=== PATIENT | female | born 1990 ===

== ENCOUNTER 2021-02-16 08:05 | Outpatient (REF) | payer OTHER, SELFPAY ==
[2021-02-18 15:12] LABS: TS Negative Control Passed; TS Panel A 0; TS Panel B 0; TS Positive Control Passed; TSpotTB Negative (Negative)
== END 2021-02-16 08:06 | disposition home or self-care (01) ==
LOC: HO.HMGCLDS 08:05
PROVIDERS: PCP Internal Medicine; Visit Provider Internal Medicine
DX: Z11.1 Encounter for screening for respiratory tuberculosis (principal)
CPT/HCPCS: 36415; 86481

== ENCOUNTER 2021-05-12 09:49 | Outpatient (REF) | payer OTHER, SELFPAY ==
[2021-05-12 11:46] LABS: Estimated Average Glucose 120 mg/dL; Hemoglobin A1c % 5.8 %
[2021-05-12 11:50] LABS: Alanine Aminotransferase 41 U/L (0-31); Anion Gap 14 (12-20); Aspartate Amino Transferase 24 U/L (5-31); Blood Urea Nitrogen 9 mg/dL (9-16); Calcium 9.3 mg/dL (8.4-10.2); Carbon Dioxide 23 mmol/L (22-29); Chloride 105 mmol/L (96-108); Cholesterol 157 mg/dL; Estimated Glomerular Filt Rate > 60; Glucose Fasting 116 mg/dL (60-99); HDL Cholesterol 35 mg/dL; LDL Cholesterol Calculated 104 mg/dl; Potassium 4.2 mmol/L (3.3-5.1); Sodium 138 mmol/L (135-145); Triglycerides 92 mg/dL
[2021-05-12 12:14] LABS: Free T4 (Free Thyroxine) 0.96 ng/dL (0.71-1.85); Thyroid Stimulating Hormone 0.66 uIU/mL (0.32-4.0); Vitamin D 25-OH Total 19.9 ng/mL (>30)
[2021-05-14 21:12] LABS: Thyroid Peroxidase Antibodies <1 IU/mL (<9)
== END 2021-05-12 09:50 | disposition home or self-care (01) ==
LOC: HO.HMGCLDS 09:49
PROVIDERS: PCP Internal Medicine; Visit Provider Internal Medicine
DX: E04.2 Nontoxic multinodular goiter (principal); F41.8 Other specified anxiety disorders; I10 Essential (primary) hypertension; E03.9 Hypothyroidism, unspecified
CPT/HCPCS: 36415; 80048; 80061; 82306; 83036; 84439; 84443; 84450; 84460; 86376

== ENCOUNTER 2021-07-12 13:54 | Outpatient (REF) | payer OTHER, SELFPAY ==
--- NOTE | ~2021-07-12 | US_ITS ---
EXAMINATION: US THYROID CLINICAL INFORMATION: Nontoxic multinodular goiter. COMPARISON: Ultrasound soft tissue head/neck thyroid dated 02/25/2020 and 09/03/2017. TECHNIQUE: Linear transducer grayscale and color Doppler examination with attention to the region of the thyroid. FINDINGS: SIZE: Measurements of the thyroid lobes and nodules are given in sagittal, anteroposterior and transverse dimensions respectively. Right Thyroid Lobe: 4.6 x 1.2 x 2.0 cm, volume 5.8 mL. Previously 4.7 x 1.5 x 1.9 cm, volume 7.3 mL. Parenchyma: The gland echotexture is homogeneous. Thyroid vascularity is normal. Left Thyroid Lobe: 3.7 x 0.9 x 1.6 cm, volume 2.8 mL. Previously 5.1 x 1.1 x 1.9 cm, volume 5.4 mL. Parenchyma: The gland echotexture is homogeneous. Thyroid vascularity is normal. Isthmus: 0.4 cm in maximum AP dimension. Previously 0.4 cm. Estimated total number of nodules greater than or equal to 1 cm: 0. [employer] nodules are described as follows: 1. Location: Right superior. Size: 0.4 x 0.3 x 0.4 cm, volume 0.03 mL. Previously: 0.5 x 0.4 x 0.4 cm, volume 0.04 mL. Nodule characteristics: Composition: Mixed cystic and solid (1). Echogenicity: Hypoechoic (2). Shape: Not taller than wide (0). Margins: Smooth (0). Echogenic Foci: None (0). ACR TI-RADS total points: 3 ACR TI-RADS category: 3 Significant change in size (>/= 20% in 2 dimensions and minimal increase of 2 mm or 50% or greater increase in volume): No NODES: No lymphadenopathy is seen in the tissue surrounding the thyroid gland. US/US thyroid IMPRESSION: Stable 4 mm TR 3 nodule of the right thyroid lobe. Other previously visualized sub-5 mm thyroid nodules not clearly visualized on today's imaging. No new suspicious thyroid nodules visualized. ACR TI-RADS RECOMMENDATION REFERENCE: Ultrasound-guided fine-needle aspiration, followup ultrasound, no further follow up. * TR3 (3 points): FNA if more than or equal to 2.5 cm in maximum dimension, followup ultrasound in 1, 3 and 5 years if 1.5 to 2.4 cm in maximum dimension. * TR3, TR4 or TR5 nodules that are below the size threshold for follow up receive no follow up.
== END 2021-07-12 13:55 | disposition home or self-care (01) ==
LOC: HO.US 13:54
PROVIDERS: PCP Internal Medicine; Visit Provider Internal Medicine
DX: R13.10 Dysphagia, unspecified (principal); E04.2 Nontoxic multinodular goiter
CPT/HCPCS: 76536

== ENCOUNTER 2021-12-12 11:39 | Outpatient (REF) | payer OTHER, SELFPAY ==
[2021-12-12 14:08] LABS: Alanine Aminotransferase 13 U/L (0-31); Anion Gap 14 (12-20); Aspartate Amino Transferase 13 U/L (5-31); Blood Urea Nitrogen 10 mg/dL (9-16); Calcium 9.1 mg/dL (8.4-10.2); Carbon Dioxide 23 mmol/L (22-29); Chloride 105 mmol/L (96-108); Cholesterol 202 mg/dL; Estimated Glomerular Filt Rate > 60; Glucose Fasting 124 mg/dL (60-99); HDL Cholesterol 50 mg/dL; LDL Cholesterol Calculated 119 mg/dl; Potassium 4.4 mmol/L (3.3-5.1); Sodium 138 mmol/L (135-145); Triglycerides 167 mg/dL
[2021-12-12 14:30] LABS: Free T4 (Free Thyroxine) 0.92 ng/dL (0.71-1.85); Thyroid Stimulating Hormone 0.65 uIU/mL (0.32-4.0)
[2021-12-12 14:37] LABS: Estimated Average Glucose 117 mg/dL; Hemoglobin A1c % 5.7 %
[2021-12-14 20:05] LABS: TS Negative Control Passed; TS Panel A 0; TS Panel B 0; TS Positive Control Passed; TSpotTB Negative (Negative)
== END 2021-12-12 11:40 | disposition home or self-care (01) ==
LOC: HO.HMGCLDS 11:39
PROVIDERS: PCP Internal Medicine; Visit Provider Internal Medicine
DX: Z11.1 Encounter for screening for respiratory tuberculosis (principal); Z00.01 Encounter for general adult medical examination with abnormal findings; E28.2 Polycystic ovarian syndrome; E03.9 Hypothyroidism, unspecified; E04.2 Nontoxic multinodular goiter; E66.9 Obesity, unspecified; F41.1 Generalized anxiety disorder
CPT/HCPCS: 36415; 80048; 80061; 83036; 84439; 84443; 84450; 84460; 86481

== ENCOUNTER 2022-03-07 15:43 | Emergency (ER) | payer OTHER, SELFPAY ==
[2022-03-07 16:37] VITALS: BP 138/87; PULSE 100; RESP 16; TEMP 36.9; O2SAT 99; BMI 33.3
[2022-03-07 17:02] LABS: MANUAL DIFF FLAG NO
[2022-03-07 17:05] LABS: Basophils Percent Auto 0.4 % (0-2); Eosinophils Absolute Auto 0.3 X10*3/uL (0.0-0.4); Eosinophils Percent Auto 2.6 % (0-4); Hematocrit 40.3 % (37.0-47.0); Hemoglobin 13.2 g/dl (12.0-16.0); Imm Gran Abs Auto 0.02 X10*3/uL (0.00-0.03); Imm Gran Pct Auto 0.2 % (0.0-0.4); Lymphocytes Absolute Auto 3.6 X10*3/uL (1.2-4.9); Lymphocytes Percent Auto 37.3 % (20-40); Mean Corpuscular HGB Conc 32.8 g/dl (31.0-35.0); Mean Corpuscular Hemoglobin 28.9 pg (27.0-33.0); Mean Corpuscular Volume 88.4 fL (80.0-98.0); Mean Platelet Volume 8.6 fL (9.4-12.3); Monocytes Absolute Auto 0.8 X10*3/uL (0.1-1.2); Monocytes Percent Auto 8.5 % (2-11); Platelet Count 393 X10*3/uL (160-400); Red Blood Count 4.56 X10*6/uL (4.20-5.50); Red Cell Distribution Width 12.6 % (11.0-16.0); White Blood Count 9.8 X10*3/uL (4.8-10.8)
[2022-03-07 17:06] LABS: Appearance Urine Clear; Color Urine Yellow; Glucose Urine UA Negative (Negative); Leukocyte Esterase Urine Small (1+) (Negative); Nitrite Urine Negative (Negative); PH 5.5 (5.0-9.0); Specific Gravity - Urine >= 1.030 (1.005-1.025); Urine Blood Negative (Negative); Urine Ketones Negative (Negative); Urine Protein Negative (Neg-Trace)
[2022-03-07 17:08] LABS: Bacteria Urine 1+ (None Seen); Hyaline Casts Urine 0-2 /LPF (0-2); RBC Urine 0-2 /HPF (0-2); UACC Culture Trigger YES
[2022-03-07 17:22] LABS: Anion Gap 17 (12-20); Blood Urea Nitrogen 9 mg/dL (9-16); Calcium 9.1 mg/dL (8.4-10.2); Carbon Dioxide 23 mmol/L (22-29); Chloride 106 mmol/L (96-108); Creatinine Clr Calc Pharmacy 121.1; Estimated Glomerular Filt Rate > 60; Glucose Random 142 mg/dL (60-115); Potassium 4.1 mmol/L (3.3-5.1); Sodium 142 mmol/L (135-145)
== END 2022-03-07 20:22 | disposition left against medical advice (07) ==
PROVIDERS: Emergency Medicine; Emergency Provider Emergency Medicine; PCP Internal Medicine
DX: R19.7 Diarrhea, unspecified (principal); Z79.899 Other long term (current) drug therapy
CPT/HCPCS: 36415; 80048; 81001; 85025; 87086; 99282; 99283

== ENCOUNTER → 2022-05-07 13:55 | Outpatient (BNVA) | payer OTHER, SELFPAY | PROVIDERS: PCP Internal Medicine; Visit Provider Physician Assistant | DX: R19.7 Diarrhea, unspecified (principal); R14.0 Abdominal distension (gaseous); R10.9 Unspecified abdominal pain | CPT/HCPCS: 99212 ==

== ENCOUNTER 2022-10-05 16:17 | Emergency (ER) | payer OTHER, SELFPAY ==
--- NOTE | ~2022-10-05 | US_ITS ---
EXAMINATION: US PELVIS CLINICAL INFORMATION: Vaginal bleeding, pain. Irregular menstrual periods, unsure about LMP. COMPARISON: None available. TECHNIQUE: Ultrasound of the pelvis is performed using both transabdominal and transvaginal transducers along with Doppler. Transvaginal imaging is performed due to inadequate visualization transabdominally. FINDINGS: The uterus is anteverted and measures 5.8 x 2.7 x 3.1 cm. No uterine mass. The endometrium measures 0.2 cm in thickness without discrete focal abnormality. Small amount of free fluid in the endocervical canal, likely physiologic. The ovaries are normal in morphology with preserved flow at the moment of this examination. The right ovary measures 1.8 x 1.4 x 1.9 cm (2.5 mL) and the left ovary measures 2.1 x 1.7 x 2.6 cm (5 mL). Moderate to large amount of anechoic fluid in the cul-de-sac with internal septations. US/US pelvic and transvaginal IMPRESSION: Moderate to large amount of anechoic content in the cul-de-sac with multiple septations; unsure if this represents loculated free fluid with fibrotic bands sequela of an infectious or inflammatory process, versus a multiseptated lesion such as peritoneal inclusion cyst, dilated fallopian tubes or adnexal cystic mass. Recommend further evaluation with a CT or MRI.
--- NOTE | ~2022-10-05 | CT_ITS ---
EXAMINATION: CT ABDOMEN AND PELVIS WITH CONTRAST CLINICAL INFORMATION: 32-year-old female with pelvic pain COMPARISON: Pelvic ultrasound from the same day earlier TECHNIQUE: Multidetector volumetric images were obtained from the superior aspect of the liver through the pubic symphysis following administration 85 mL of Omnipaque 350 intravenous contrast. Sagittal and coronal reformatted images were obtained on the technologist's workstation. Oral contrast: No This CT examination was performed using dose optimization techniques as appropriate, variously including the following: *Automated exposure control *Adjustment of mA and/or kV according to patient size (this includes techniques or standardized protocols for targeted exams where dose is matched to indication/reason for exam; i.e. extremities or head) *Use of iterative reconstruction technique DLP: 593 mGy-cm FINDINGS: LUNG BASES: The visualized lung bases are unremarkable. LIVER, GALLBLADDER, AND BILIARY TREE: The liver is normal in size, shape, and attenuation. No focal hepatic lesion or biliary ductal dilatation is present. The gallbladder is unremarkable with no evidence of radiopaque gallstones, gallbladder wall thickening, or obvious pericholecystic inflammatory changes. PANCREAS: Unremarkable. SPLEEN: Unremarkable. ADRENAL GLANDS: Unremarkable. KIDNEYS AND URETERS: The kidneys are normal in size, shape, and attenuation. No hydronephrosis, hydroureter, or calculi seen. No perinephric stranding. BLADDER: The wall of urinary bladder is circumferentially thick and irregular GASTROINTESTINAL TRACT: The small and large bowel are unremarkable. The appendix is unremarkable. ABDOMINAL WALL: No significant hernia is appreciated. LYMPH NODES: Normal. VASCULAR: Unremarkable. PELVIC VISCERA: There is fluid in cul-de-sac. Uterus is unremarkable. Right ovary is unremarkable. Left ovary is small. OSSEOUS STRUCTURES: Unremarkable. CT/CT abdomen pelvis w IV con IMPRESSION: 1. Circumferentially thick-walled urinary bladder. Correlate with urinalysis. 2. Fluid in cul-de-sac. Fleischner guidelines were followed.
[2022-10-05 17:16] VITALS: BP 139/83; PULSE 105; RESP 18; TEMP 37.2; O2SAT 97; BMI 31.8
--- NOTE | 2022-10-05 17:16 | ED_ITS ---
HPI - General Adult General Chief complaint: Vaginal Bleeding <STEVEN Garcia - Last Filed: 10/05/22 17:18> Stated complaint: Vaginal Pain <STEVEN Garcia - Last Filed: 10/05/22 17:18> Time Seen by Provider: 10/05/22 19:35 <STEVEN Garcia - Last Filed: 10/05/22 17:18> Source: patient <Mine Cruz MD - Last Filed: 10/05/22 21:24> Mode of arrival: ambulatory <Mine Cruz MD - Last Filed: 10/05/22 21:24> Limitations: no limitations <Mine Cruz MD - Last Filed: 10/05/22 21:24> History of Present Illness HPI narrative: Patient comes emergency room complaining of 2-3 days of vaginal bleeding. Patient states that she was diagnosed with PCOS, denies any pain with urination. Patient states that she was seen by her OB Gyne 2 days ago, she was told that she has increased fibroids.. Patient states that she has been offered an IUD, declined because of previous history of PID several years ago. Patient denies any vaginal discharge, no foul smelling discharge. Constant with STD. <Mine Cruz MD - Last Filed: 10/05/22 21:24> Related Data Home medications: Home Medications Medication Instructions Recorded Confirmed bupropion HCl 150 mg tablet,12 hr 150 mg PO QAM 09/10/22 sustained-release Previous Rx's Medication Instructions Recorded zxsqaiehkl-gxjlllvmotwxv-yemlhelq 1 tab PO Q6H headache #10 tabs 11/27/21 50 mg-325 mg-40 mg tablet venlafaxine 150 mg 150 mg PO QAM #30 caps 05/27/22 capsule,extended release 24 hr semaglutide (weight loss) 0.5 0.5 mg (0.5 mL) subcut QWEEK 30 09/10/22 mg/0.5 mL subcutaneous pen injector days #2.5 mL levonorgestrel 0.15 mg-ethinyl See Rx Instructions .Route 10/05/22 estradiol 0.03 mg tablet (Altavera .COMPLEX #27 tabs (28)) <STEVEN Garcia - Last Filed: 10/05/22 17:18> Allergies/adverse reactions: Allergies Allergy/AdvReac Type Severity Reaction Status Date / Time No Known Allergies Allergy Verified 10/05/22 17:16 <STEVEN Garcia - Last Filed: 10/05/22 17:18> Review of Systems Review of Systems: Constitutional : No Weight loss, No Fever, No Chills, No Night Sweats, No Fatigue, No Malaise ENT/Mouth : No Hearing loss, No Ear Pain, No Nasal Congestion, No Sinus Pain, No Hoarseness, No sore throat, No Rhinorrhea, No Swallowing Difficulty Eyes: No Eye Pain, No Swelling, No Redness, No Foreign Body, No Discharge, No Vision Changes Cardiovascular : No Chest Pain, No SOB, No Dyspnea on Exertion, No Orthopnea, No Edema, No Palpitations Respiratory : No Cough, No Sputum, No Wheezing, No Smoke Exposure, No Dyspnea Gastrointestinal : No Nausea, No Vomiting, No Diarrhea, No Constipation, No abdominal Pain, No Hematochezia, No Melena Genitourinary : Complaining of heavier than usual vaginal bleeding for the last 2-3 days., No Dysuria, No Urinary Frequency, No Hematuria, No Urinary Incontinence, No Urgency, No Flank Pain, No Urinary Flow Changes, No Hesitancy Musculoskeletal : No joint pain, No Myalgias, No Joint Swelling Skin : No Skin Lesions, No rash Neuro : No Weakness, No Numbness, No Paresthesias, No Loss of Consciousness, No Dizziness, No Headache Psych : No Anxiety/Panic, No Depression, No SI/HI/AH/VH, No Social Issues, Heme/Lymph: No Bruising, No Bleeding,No Lymphadenopathy Endocrine : No Polyuria, No Polydipsia, No Temperature Intolerance <Mine Cruz MD - Last Filed: 10/05/22 21:24> [facility] Past Medical History Medical History: Medical History Abdominal bloating with cramps Depression with anxiety Generalized anxiety disorder Multinodular goiter Obesity (BMI 35.0-39.9 without comorbidity) PCOS (polycystic ovarian syndrome) <STEVEN Garcia - Last Filed: 10/05/22 17:18> Surgical History: Surgical History Hx of section <STEVEN Garcia - Last Filed: 10/05/22 17:18> Family History Family History: Family History Father No problems noted. Mother Bipolar disorder PTSD (post-traumatic stress disorder) Thyroid nodule Mental health disorder <STEVEN Garcia - Last Filed: 10/05/22 17:18> Social History Social History: Social History Housing: Apartment Alcohol intake: current Alcohol intake frequency: a few times a month Patient Tobacco Use Status: Never used Tobacco Smoked in Last 30 Days: No e-Cigarette/Vaping Use: Never Used Use of substances other than those prescribed or required for medical reasons: No Advance Directives: No Advance Directives Information Provided: No Current occupational status: employed Current occupation: [employer], PCT-pediatric Cognitive needs: No Hearing needs: No Vision needs: No <STEVEN Garcia - Last Filed: 10/05/22 17:18> Physical Exam ED Vital Signs: Vital Signs - 24 hr 10/05/22 17:16 10/05/22 20:00 Temperature 99.0 F 98.5 F Pulse Rate 105 H 84 Respiratory Rate 18 18 Blood Pressure 139/83 122/78 Pulse Oximetry 97 97 Oxygen Delivery Method Room Air Room Air BMI result Body Mass Index 31.8 <STEVEN Garcia - Last Filed: 10/05/22 17:18> Vital Signs - 24 hr 10/05/22 17:16 10/05/22 20:00 Temperature 99.0 F 98.5 F Pulse Rate 105 H 84 Respiratory Rate 18 18 Blood Pressure 139/83 122/78 Pulse Oximetry 97 97 Oxygen Delivery Method Room Air Room Air BMI result Body Mass Index 31.8 <Mine Cruz MD - Last Filed: 10/05/22 21:24> Const Other: Appearance: Alert. Oriented X3. No acute distress. Eyes: Pupils equal, round and reactive to light. ENT: Pharynx normal. Neck: Normal inspection. Neck supple. No lymph nodes noted. No crepitus CVS: Normal heart rate and rhythm. Pulses normal. Normal S1 and S2 Respiratory: No respiratory distress. Breath sounds normal. No Wheezing. No rales Abdomen: Soft and nontender. No rigidity. No distention. : Small to moderate amount of blood in the vaginal vault, no discharge, no vaginal wall lacerations. Negative chandelier sign, no adnexal pain Skin: Skin warm and dry. Normal skin color. Normal skin turgor. Extremities: No lower extremity edema. No Lacerations. No Rash Neuro: Oriented X 3. No motor deficit. No sensory deficit. Moving all extremities. No slurred speech. CN 2 through 12 grossly intact Psych: calm, cooperative, normal affect <Mine Cruz MD - Last Filed: 10/05/22 21:24> Course Course Course Narrative: RME performed by Chrystal Ramirez PA-C. Patient is a 32 year old assigned female at presenting to the emergency department with excessive vaginal discharge. Patient states that she is having vaginal pain associated with it. Patient states that she is also expelling large clots. Patient has a history of PCOS. Labs and imaging ordered. Patient placed back in the waiting room pending room availability and results. <STEVEN Garcia - Last Filed: 10/05/22 17:18> Medications Administered Discontinued Medications Generic Name Dose Route Start Last Admin Trade Name Freq PRN Reason Stop Dose Admin Iohexol 100 ml 10/05/22 20:10 10/05/22 20:10 Iohexol 350 Mg/Ml 100 Ml Infus..Btl IV 10/05/22 20:11 85 ml ONCE ONE Administration <STEVEN Garcia - Last Filed: 10/05/22 17:18> Medications Administered Discontinued Medications Generic Name Dose Route Start Last Admin Trade Name Freq PRN Reason Stop Dose Admin Iohexol 100 ml 10/05/22 20:10 10/05/22 20:10 Iohexol 350 Mg/Ml 100 Ml Infus..Btl IV 10/05/22 20:11 85 ml ONCE ONE Administration <Mine Cruz MD - Last Filed: 10/05/22 21:24> Medical Decision Making Medical Decision Making MDM Narrative: Patient's white blood cell count 15.3 likely reactive leukocytosis. Patient's urine is negative for UTI, patient has a large amount of blood secondary to vaginal bleeding. Patient has no UTI symptoms. Antibiotics not indicated at this time Transvaginal ultrasound showed free fluid with fibrotic bands in the cul-de-sac, infectious versus inflammatory versus peritoneal inclusion cyst. CT scan was obtained showing circumferentially thickened wall urinary bladder and fluid in the cul-de-sac. -patient agreeable to take control pills to help with vaginal bleeding. Patient will follow-up with the primary care physician and Ob Gyne. HCG negative -swabs were obtained for bacterial vaginosis, Trichomonas, gonorrhea and chlamydia. All labs pending <Mine Cruz MD - Last Filed: 10/05/22 21:24> Differential Diagnosis Differential Diagnoses: The differential diagnosis associated with the presentation includes (Miscarriage, menorrhagia, menometrorrhagia, dysfunctional uterine bleeding, menstrual.) <Mine Cruz MD - Last Filed: 10/05/22 21:24> Lab Data MDM Lab Attestation statement: I reviewed the patient's lab results. <Mine Cruz MD - Last Filed: 10/05/22 21:24> Result Diagrams: 10/05/22 17:29 10/05/22 17:29 <STEVNE Garcia - Last Filed: 10/05/22 17:18> Labs: Lab Results 10/05/22 10/05/22 10/05/22 Range/Units 17:29 17:29 19:56 WBC 15.3 H (4.8-10.8) X10*3/uL RBC 4.50 (4.20-5.50) X10*6/uL Hgb 13.6 (12.0-16.0) g/dl Hct 39.8 (37.0-47.0) % MCV 88.4 (80.0-98.0) fL MCH 30.2 (27.0-33.0) pg MCHC 34.2 (31.0-35.0) g/dl RDW 12.5 (11.0-16.0) % Plt Count 420 H (160-400) X10*3/uL MPV 8.5 L (9.4-12.3) fL Immature Gran % (Auto) 1.0 H (0.0-0.4) % Neut % (Auto) 67.2 (45-73) % Lymph % (Auto) 24.1 (20-40) % [place] % (Auto) 6.9 (2-11) % Eos % (Auto) 0.5 (0-4) % Baso % (Auto) 0.3 (0-2) % Lymph # (Auto) 3.7 (1.2-4.9) X10*3/uL [place] # (Auto) 1.1 (0.1-1.2) X10*3/uL Eos # (Auto) 0.1 (0.0-0.4) X10*3/uL Baso # (Auto) 0.1 (0.0-0.2) X10*3/uL Abs Immat Gran (auto) 0.16 H (0.00-0.03) X10*3/uL Absolute Neuts (auto) 10.3 H (2.0-8.3) x10*3/uL Absolute Nucleated RBC 0.000 (0.0-0.012) X10*3/uL Nucleated RBC % (auto) 0.0 (0.0-0.2) /100WBC Sodium 143 (135-145) mmol/L Potassium 3.5 (3.3-5.1) mmol/L Chloride 105 (96-108) mmol/L Carbon Dioxide 29 (22-29) mmol/L Anion Gap 13 (12-20) BUN 9 (9-16) mg/dL Creatinine 0.72 (0.5-1.4) mg/dL Estim Creat Clear Calc 112.5 Estimated GFR > 60 Random Glucose 74 (60-115) mg/dL Lactic Acid 1.7 (0.5-2.0) mmol/L Calcium 9.1 (8.4-10.2) mg/dL Magnesium 2.3 (1.6-2.6) mg/dL Total Bilirubin 0.4 (0.0-1.0) mg/dL AST 16 (5-31) U/L ALT 24 (0-31) U/L Alkaline Phosphatase 74 (39-117) U/L Total Protein 7.1 (6.5-8.0) g/dL Albumin 4.2 (3.5-5.0) g/dL Beta HCG, Quant < 2 mIU/mL <STEVEN Garcia - Last Filed: 10/05/22 17:18> Lab Results 10/05/22 10/05/22 10/05/22 Range/Units 17:29 17:29 19:56 WBC 15.3 H (4.8-10.8) X10*3/uL RBC 4.50 (4.20-5.50) X10*6/uL Hgb 13.6 (12.0-16.0) g/dl Hct 39.8 (37.0-47.0) % MCV 88.4 (80.0-98.0) fL MCH 30.2 (27.0-33.0) pg MCHC 34.2 (31.0-35.0) g/dl RDW 12.5 (11.0-16.0) % Plt Count 420 H (160-400) X10*3/uL MPV 8.5 L (9.4-12.3) fL Immature Gran % (Auto) 1.0 H (0.0-0.4) % Neut % (Auto) 67.2 (45-73) % Lymph % (Auto) 24.1 (20-40) % [place] % (Auto) 6.9 (2-11) % Eos % (Auto) 0.5 (0-4) % Baso % (Auto) 0.3 (0-2) % Lymph # (Auto) 3.7 (1.2-4.9) X10*3/uL [place] # (Auto) 1.1 (0.1-1.2) X10*3/uL Eos # (Auto) 0.1 (0.0-0.4) X10*3/uL Baso # (Auto) 0.1 (0.0-0.2) X10*3/uL Abs Immat Gran (auto) 0.16 H (0.00-0.03) X10*3/uL Absolute Neuts (auto) 10.3 H (2.0-8.3) x10*3/uL Absolute Nucleated RBC 0.000 (0.0-0.012) X10*3/uL Nucleated RBC % (auto) 0.0 (0.0-0.2) /100WBC Sodium 143 (135-145) mmol/L Potassium 3.5 (3.3-5.1) mmol/L Chloride 105 (96-108) mmol/L Carbon Dioxide 29 (22-29) mmol/L Anion Gap 13 (12-20) BUN 9 (9-16) mg/dL Creatinine 0.72 (0.5-1.4) mg/dL Estim Creat Clear Calc 112.5 Estimated GFR > 60 Random Glucose 74 (60-115) mg/dL Lactic Acid 1.7 (0.5-2.0) mmol/L Calcium 9.1 (8.4-10.2) mg/dL Magnesium 2.3 (1.6-2.6) mg/dL Total Bilirubin 0.4 (0.0-1.0) mg/dL AST 16 (5-31) U/L ALT 24 (0-31) U/L Alkaline Phosphatase 74 (39-117) U/L Total Protein 7.1 (6.5-8.0) g/dL Albumin 4.2 (3.5-5.0) g/dL Beta HCG, Quant < 2 mIU/mL <Mine Cruz MD - Last Filed: 10/05/22 21:24> Radiology Impression Discussion of test interpretation with radiology: I have reviewed the radiologist's reading. <Mine Cruz MD - Last Filed: 10/05/22 21:24> Radiologist Impression: FINDINGS: LUNG BASES: The visualized lung bases are unremarkable.? LIVER, GALLBLADDER, AND BILIARY TREE: The liver is normal in size, shape, and attenuation. No focal hepatic lesion or biliary ductal dilatation is present. The gallbladder is unremarkable with no evidence of radiopaque gallstones, gallbladder wall thickening, or obvious pericholecystic inflammatory changes.? PANCREAS: Unremarkable.? SPLEEN: Unremarkable.? ADRENAL GLANDS: Unremarkable.? KIDNEYS AND URETERS: The kidneys are normal in size, shape, and attenuation. No hydronephrosis, hydroureter, or calculi seen. No perinephric stranding. ? BLADDER: The wall of urinary bladder is circumferentially thick and irregular? GASTROINTESTINAL TRACT: The small and large bowel are unremarkable. The appendix is unremarkable.? ABDOMINAL WALL: No significant hernia is appreciated.? LYMPH NODES: Normal. VASCULAR: Unremarkable. PELVIC VISCERA: There is fluid in cul-de-sac. Uterus is unremarkable. Right ovary is unremarkable. Left ovary is small.? OSSEOUS STRUCTURES: Unremarkable.? CT/CT abdomen pelvis w IV con IMPRESSION: 1.? Circumferentially thick-walled urinary bladder. Correlate with urinalysis. 2.? Fluid in cul-de-sac. TECHNIQUE: Ultrasound of the pelvis is performed using both transabdominal and transvaginal transducers along with Doppler. Transvaginal imaging is performed due to inadequate visualization transabdominally. FINDINGS: The uterus is anteverted and measures 5.8 x 2.7 x 3.1 cm. No uterine mass. The endometrium measures 0.2 cm in thickness without discrete focal abnormality. Small amount of free fluid in the endocervical canal, likely physiologic. The ovaries are normal in morphology with preserved flow at the moment of this examination. The right ovary measures 1.8 x 1.4 x 1.9 cm (2.5 mL) and the left ovary measures 2.1 x 1.7 x 2.6 cm (5 mL). Moderate to large amount of anechoic fluid in the cul-de-sac with internal septations. US/US pelvic and transvaginal IMPRESSION: Moderate to large amount of anechoic content in the cul-de-sac with multiple septations; unsure if this represents loculated free fluid with fibrotic bands sequela of an infectious or inflammatory process, versus a multiseptated lesion such as peritoneal inclusion cyst, dilated fallopian tubes or adnexal cystic mass. ? ? <Mine Cruz MD - Last Filed: 10/05/22 21:24> Discharge Plan Discharge Clinical Impression: Dysfunctional uterine bleeding <STEVEN Garcia - Last Filed: 10/05/22 17:18> Patient Disposition: Home, Self-Care <STEVEN Garcia - Last Filed: 10/05/22 17:18> Instructions: Dysfunctional Uterine Bleeding (ED) <STEVEN Garcia - Last Filed: 10/05/22 17:18> Additional Instructions: Please follow-up with your primary care physician tomorrow. If you have any worsening or new symptoms, please return to the emergency room or call 911 <STEVEN Garcia - Last Filed: 10/05/22 17:18> Prescriptions: New levonorgestrel-ethinyl estrad [Altavera (28)] 0.15-0.03 mg tablet See Rx Instructions .ROUTE .COMPLEX Qty: 27 0RF Rx Instructions: Take 4 tablets orally for 4 days, then take 3 tablets p.o. for 3 days, then take 2 tablets p.o. for 2 days, then take 1 tablet oral daily until finishing the pack No Action kcyesvtaum-sqvdzhtloirjv-gniu 50-325-40 mg tablet 1 tab PO Q6H Qty: 10 0RF venlafaxine 150 mg capsule,extended release 24hr 150 mg PO QAM Qty: 30 6RF bupropion HCl 150 mg tablet sustained-release 12 hr 150 mg PO QAM Wegovy 0.5 mg/0.5 mL pen injector 0.5 mg subcut QWEEK 30 Days Qty: 2.5 1RF <STEVEN Garcia - Last Filed: 10/05/22 17:18>
[2022-10-05 17:34] LABS: MANUAL DIFF FLAG NO
[2022-10-05 17:38] LABS: Basophils Absolute Auto 0.1 X10*3/uL (0.0-0.2); Basophils Percent Auto 0.3 % (0-2); Eosinophils Absolute Auto 0.1 X10*3/uL (0.0-0.4); Eosinophils Percent Auto 0.5 % (0-4); Hematocrit 39.8 % (37.0-47.0); Hemoglobin 13.6 g/dl (12.0-16.0); Imm Gran Abs Auto 0.16 X10*3/uL (0.00-0.03); Lymphocytes Absolute Auto 3.7 X10*3/uL (1.2-4.9); Lymphocytes Percent Auto 24.1 % (20-40); Mean Corpuscular HGB Conc 34.2 g/dl (31.0-35.0); Mean Corpuscular Hemoglobin 30.2 pg (27.0-33.0); Mean Corpuscular Volume 88.4 fL (80.0-98.0); Mean Platelet Volume 8.5 fL (9.4-12.3); Monocytes Absolute Auto 1.1 X10*3/uL (0.1-1.2); Monocytes Percent Auto 6.9 % (2-11); Neutrophils Absolute Auto 10.3 x10*3/uL (2.0-8.3); Neutrophils Percent Auto 67.2 % (45-73); Platelet Count 420 X10*3/uL (160-400); Red Cell Distribution Width 12.5 % (11.0-16.0); White Blood Count 15.3 X10*3/uL (4.8-10.8)
[2022-10-05 17:59] LABS: Alanine Aminotransferase 24 U/L (0-31); Albumin Level 4.2 g/dL (3.5-5.0); Alkaline Phosphatase 74 U/L (39-117); Anion Gap 13 (12-20); Aspartate Amino Transferase 16 U/L (5-31); Bilirubin Total 0.4 mg/dL (0.0-1.0); Blood Urea Nitrogen 9 mg/dL (9-16); Calcium 9.1 mg/dL (8.4-10.2); Carbon Dioxide 29 mmol/L (22-29); Chloride 105 mmol/L (96-108); Creatinine Clr Calc Pharmacy 112.5; Estimated Glomerular Filt Rate > 60; Glucose Random 74 mg/dL (60-115); Magnesium 2.3 mg/dL (1.6-2.6); Potassium 3.5 mmol/L (3.3-5.1); Sodium 143 mmol/L (135-145); Total Protein 7.1 g/dL (6.5-8.0)
[2022-10-05 18:09] LABS: HCG Quantitative < 2 mIU/mL
--- NOTE | 2022-10-05 19:26 | PC.NURSE ---
patient reports clots coming out, only when wiping, no blood flow, no saturated pads. Reporting 10/10 pelvic pain
[2022-10-05 20:00] VITALS: BP 122/78; PULSE 84; RESP 18; TEMP 36.9; O2SAT 97
[2022-10-05] MEDS: iohexoL 350 MG/ML 100 ML INFUS..BTL IV (20:10)
[2022-10-05 20:19] LABS: Lactic Acid 1.7 mmol/L (0.5-2.0)
--- NOTE | 2022-10-05 20:51 | MHC.EDTECH ---
PT URINE SAMPLE COLLECTED AND SENT TO LAB .
--- NOTE | 2022-10-05 21:10 | MHC.EDTECH ---
THIS PCT SET UP AND ASSIST DR GRAHAM WITH PATIENT PELVIC EXAM , VAGINAL SAMPLE COLLECTED AND SENT TO LAB .
[2022-10-05 21:15] LABS: Appearance Urine Turbid; Bacteria Urine Trace (None Seen); Color Urine Red; Glucose Urine UA Negative (Negative); Hyaline Casts Urine 0-2 /LPF (0-2); Leukocyte Esterase Urine Moderate (2+) (Negative); Nitrite Urine Negative (Negative); RBC Urine >20 /HPF (0-2); Specific Gravity - Urine >= 1.030 (1.005-1.025); UACC Culture Trigger YES; UMIC TRIGGER UACC YES; Urine Blood Large (3+) (Negative); Urine Ketones Negative (Negative); Urine Protein 100 (2+) mg/dL (Neg-Trace); WBC Urine 21-50 /HPF (0-5)
[2022-10-05] MEDS: traMADoL HCL 50 MG TABLET PO (21:31)
[2022-10-06 05:23] LABS: CT PCR NOT DETECTED (Not Detect.); NG PCR NOT DETECTED (Not Detect.)
[2022-10-06 09:38] LABS: BV Int Neg Control Negative (Negative); BV Int Pos Control Positive (Positive)
== END 2022-10-05 21:42 | disposition home or self-care (01) ==
PROVIDERS: Physician Assistant Medical; Emergency Provider Emergency Medicine; PCP Internal Medicine
DX: N93.8 Other specified abnormal uterine and vaginal bleeding (principal); R10.2 Pelvic and perineal pain; Z79.899 Other long term (current) drug therapy
CPT/HCPCS: 0353U; 36415; 74177; 76830; 76856; 80053; 81001; 81003; 83605; 83735; 84702; 85025; 87040; 87086; 87480; 87510; 87660; 99284; Q9967

== ENCOUNTER 2022-10-15 13:51 | Outpatient (AMB) | payer OTHER, SELFPAY ==
--- NOTE | 2022-10-15 14:22 | A.OFFPC_ITS ---
Vital Signs 10/15/22 14:28 Height 5 ft 3 in Weight 181 lb 4 oz BMI 32.1 BP 120/76 Blood Pressure Location Rt brachial Position Sitting Pulse 96 Pulse Source Pulse Oximeter Pulse Oximetry (%) 97 Oxygen Delivery Method Room Air Intake [place] [facility] [place] Intake Note: Pt is here today for [place] [facility] [place] Allergies No Known Allergies Allergy (Verified 12/30/22 11:22) Medication List - Last Reconciled 03/29/23 by Ila Hernandez MD bupropion HCl 150 mg PO QAM levonorgestrel-ethinyl estrad 0.15-0.03 mg (Altavera (28)) 1 tablet oral daily levonorgestrel-ethinyl estrad 0.15-0.03 mg (Altavera (28)) take 1 tablet daily following the order on blister card(s) PO lorazepam 0.5 mg PO DAILY PRN semaglutide (weight loss) (Wegovy) 0.5 mg subcut QWEEK venlafaxine ER 150 mg PO QAM Tobacco use date assessed: 10/15/22 H[place] [facility] [place] HPI Details 33-year-old lady here today for follow-u p after recent ER visit, where she presented with year of vaginal bleeding with passage of clots and pelvic pain. Transvaginal ultrasound showed free fluid with fibrotic bands in the cul-de-sac, infectious versus inflammatory versus peritoneal inclusion cyst. CT scan was obtained showing circumferentially thickened wall urinary bladder and fluid in the cul-de-sac. She was placed on control pills to help with vaginal bleeding, and has an upcoming follow-up with physician gynecologist for further evaluation and management. Denies any urinary symptoms, vital signs and H&H are within normal limits.. Feels well at present with vaginal bleeding resolved [facility] Medical History Abdominal bloating with cramps Bladder wall thickening Depression with anxiety Generalized anxiety disorder Hematuria Multinodular goiter Obesity (BMI 35.0-39.9 without comorbidity) PCOS (polycystic ovarian syndrome) Peritoneal fluid collection Surgical History Hx of section Family History Father No problems noted. Mother Bipolar disorder PTSD (post-traumatic stress disorder) Thyroid nodule Mental health disorder Social History Housing: Apartment Alcohol intake: current Alcohol intake frequency: a few times a month Patient Tobacco Use Status: Never used Tobacco e-Cigarette/Vaping Use: Never Used Current occupational status: employed Current occupation: [employer], PCT-pediatric Cognitive needs: No Hearing needs: No Vision needs: No Questionnaire Thrive Questionnaire Date Thrive assessed: 12/04/21 AUDIT C Alcohol Use Questionnaire (AUDIT-C) 1. How often do you have a drink containing alcohol?: Never Total Score: 0 MARU-7 AMB Questionnaire MARU-7 Date MARU - 7 assessed: 12/04/21 Source: Developed by Drs. Daniel Carney, Kate Mcdonnell, Vahid Scott and colleagues, with an educational carlo from [email or web address]. Review of Systems Const Denies body aches, Denies fatigue, Denies fever(s), Denies headache(s) and Denies weakness Eyes Denies change in vision ENT Denies dizziness and Denies headache(s) Card Denies chest pain, Denies lightheadedness, Denies palpitations and Denies dyspnea Resp Denies chest congestion, Denies cough and Denies dyspnea GI Reports abdominal pain (Mild lower abdominal pain), Denies change in bowel habits and Denies heartburn Denies hematuria, Denies urinary frequency, Denies dysuria, Denies urinary urgency and Denies vaginal discharge Neuro Denies dizziness, Denies headache(s) and Denies weakness Endo Denies fatigue, Denies polydipsia, Denies polyuria and Denies palpitations Physical exam (Primary Care) Vital Signs: Last Vital Signs Pulse 96 10/15/22 14:28 BP 120/76 10/15/22 14:28 Pulse Ox 97 10/15/22 14:28 Oxygen Delivery Method Room Air 10/15/22 14:28 BMI result Body Mass Index 32.1 Tobacco/Smoking Status: Tobacco use Status Tobacco use date assessed 10/15/22 10/15/22 14:36 Patient Tobacco Use Status Never used Tobacco 10/15/22 14:23 e-Cigarette/Vaping Use Never Used 10/15/22 14:23 Thrive Assessment: Date of Thrive Assessment Date Thrive assessed 12/04/21 10/15/22 14:23 Const General: comfortable and no acute distress Nutritional Appearance: obese Orientation/consciousness: patient oriented x3 HENMT Mouth: Normal oral and palatal mucosa present, oropharynx normal and moist mucous membranes Eyes General: appearance normal, both eyes and all related structures Conjunctivae: conjunctivae normal Sclerae: sclerae normal Pupils: Equal, round and reactive pupils present EOM: EOMs intact bilaterally Neck Neck: Yes full ROM, Yes no lymphadenopathy and Yes supple Thyroid: Thyroid normal Resp Effort & Inspection: normal respiratory effort Auscultation: clear to auscultation bilaterally Cardio Other: S1-S2 present regular rate and rhythm GI Inspection: Yes normal to inspection Palpation (GI): Soft to palpation, Tenderness to palpation present (GI) (Slight discomfort on lower abdominal area), no guarding and no masses Neuro General: patient oriented x3 Cranial nerves: Yes Equal, round and reactive pupils present Assessment and Plan Assessment & Plan (1) Dysfunctional uterine bleeding: Code(s): N93.8 - Other specified abnormal uterine and vaginal bleeding Plan: Currently on control pills, with bleeding resolved, ordered CBC, referred to OBGYN for further evaluation management (2) Lower abdominal pain: Code(s): R10.30 - Lower abdominal pain, unspecified Plan: UA with reflex culture and microscopic evaluation ordered, urology consult obtained (3) Bladder wall thickening: Code(s): N32.89 - Other specified disorders of bladder Plan: Urinalysis with reflex culture and sensitivity ordered, urology consult obtained Orders: Orders Complete Blood Count Auto Diff 10/15/22 R18.8 - Other ascites, R31.9 - Hematuria, unspecified, R10.30 - Lower abdominal pain, unspecified UA CC w/rflx Micro + Cult 10/15/22 R18.8 - Other ascites, R31.9 - Hematuria, unspecified, R10.30 - Lower abdominal pain, unspecified Referrals [facility] Referral N93.8 - Other specified abnormal uterine and vaginal bleeding, R18.8 - Other ascites Urology Referral N32.89 - Other specified disorders of bladder Coding Level of Care Code Est Pt Level 3 (41325) Diagnoses Dysfunctional uterine bleeding N93.8 Lower abdominal pain R10.30 Bladder wall thickening N32.89
[2022-10-15 14:28] VITALS: BP 120/76; PULSE 96; O2SAT 97; BMI 32.1
== END 2022-10-15 16:05 | disposition home or self-care (01) ==
LOC: HO.HMGC 13:51
PROVIDERS: PCP Internal Medicine; Visit Provider Internal Medicine
DX: N93.8 Other specified abnormal uterine and vaginal bleeding (principal); R10.30 Lower abdominal pain, unspecified; N32.89 Other specified disorders of bladder
CPT/HCPCS: 99213

== ENCOUNTER 2022-10-15 14:46 | Outpatient (REF) | payer OTHER, SELFPAY ==
[2022-10-15 16:32] LABS: Appearance Urine Cloudy; Color Urine Yellow; Glucose Urine UA Negative (Negative); Leukocyte Esterase Urine Large (3+) (Negative); Nitrite Urine Positive (Negative); PH 7.5 (5.0-9.0); UMIC TRIGGER UACC YES; Urine Blood Small (1+) (Negative); Urine Ketones Negative (Negative); Urine Protein Trace mg/dL (Neg-Trace)
[2022-10-15 16:35] LABS: Bacteria Urine 2+ (None Seen); Hyaline Casts Urine 0-2 /LPF (0-2); UACC Culture Trigger YES; WBC Urine >50 /HPF (0-5)
[2022-10-15 16:59] LABS: MANUAL DIFF FLAG NO
[2022-10-15 17:07] LABS: Basophils Absolute Auto 0.1 X10*3/uL (0.0-0.2); Basophils Percent Auto 0.6 % (0-2); Eosinophils Absolute Auto 0.1 X10*3/uL (0.0-0.4); Eosinophils Percent Auto 0.9 % (0-4); Hematocrit 41.3 % (37.0-47.0); Hemoglobin 13.4 g/dl (12.0-16.0); Imm Gran Abs Auto 0.03 X10*3/uL (0.00-0.03); Imm Gran Pct Auto 0.2 % (0.0-0.4); Lymphocytes Absolute Auto 3.9 X10*3/uL (1.2-4.9); Lymphocytes Percent Auto 30.9 % (20-40); Mean Corpuscular HGB Conc 32.4 g/dl (31.0-35.0); Mean Corpuscular Hemoglobin 29.3 pg (27.0-33.0); Mean Corpuscular Volume 90.4 fL (80.0-98.0); Mean Platelet Volume 9.3 fL (9.4-12.3); Monocytes Absolute Auto 0.9 X10*3/uL (0.1-1.2); Monocytes Percent Auto 6.8 % (2-11); Neutrophils Absolute Auto 7.7 x10*3/uL (2.0-8.3); Neutrophils Percent Auto 60.6 % (45-73); Platelet Count 416 X10*3/uL (160-400); Red Blood Count 4.57 X10*6/uL (4.20-5.50); Red Cell Distribution Width 12.5 % (11.0-16.0); White Blood Count 12.7 X10*3/uL (4.8-10.8)
== END 2022-10-15 14:47 | disposition home or self-care (01) ==
LOC: HO.HMGCLDS 14:46
PROVIDERS: PCP Internal Medicine; Visit Provider Internal Medicine
DX: R10.30 Lower abdominal pain, unspecified (principal); R18.8 Other ascites; R31.9 Hematuria, unspecified
CPT/HCPCS: 36415; 81001; 85025; 87086; 87088; 87186

== ENCOUNTER 2022-10-16 13:30 | Outpatient (REF) | payer OTHER, SELFPAY ==
[2022-10-19 02:33] LABS: HPV mRNA E6/E7 rflx Not Detected (Not Detected)
== END 2022-10-16 13:31 | disposition home or self-care (01) ==
LOC: HO.LNP 13:30
PROVIDERS: PCP Internal Medicine; Visit Provider Advanced Practice Midwife
DX: N92.0 Excessive and frequent menstruation with regular cycle (principal); R10.2 Pelvic and perineal pain; R19.00 Intra-abdominal and pelvic swelling, mass and lump, unspecified site; R18.8 Other ascites
CPT/HCPCS: 87624; 88142; 99202

== ENCOUNTER 2022-11-07 08:58 | Outpatient (REF) | payer OTHER, SELFPAY ==
[2022-11-07 16:43] LABS: Urine Cytology See Pathology rpt
== END 2022-11-07 08:59 | disposition home or self-care (01) ==
LOC: HO.LNP 08:58
PROVIDERS: PCP Internal Medicine; Visit Provider Nurse Practitioner Family
DX: R31.9 Hematuria, unspecified (principal); N32.89 Other specified disorders of bladder
CPT/HCPCS: 88112; 99202

== ENCOUNTER → 2022-12-19 13:34 | Outpatient (BNVA) | payer OTHER, SELFPAY | PROVIDERS: PCP Internal Medicine; Visit Provider Urology | DX: N32.89 Other specified disorders of bladder (principal); R31.9 Hematuria, unspecified; N93.9 Abnormal uterine and vaginal bleeding, unspecified | CPT/HCPCS: 52000; C1747 ==

== ENCOUNTER 2022-12-30 11:05 | Outpatient (AMB) | payer OTHER, SELFPAY ==
--- NOTE | 2022-12-30 11:15 | A.OFFPC_ITS ---
Vital Signs 12/30/22 11:16 Height 5 ft 3 in Weight 164 lb 4 oz BMI 29.1 BP 104/76 Blood Pressure Location Rt brachial Position Sitting Pulse 95 Pulse Source Pulse Oximeter Pulse Oximetry (%) 98 Oxygen Delivery Method Room Air Intake Visit Reasons: Annual PE Intake Note: Pt is here for her PE Is last menstrual period known: Yes Last menstrual period: 12/29/22 Allergies No Known Allergies Allergy (Verified 12/30/22 11:22) Medication List - Last Reconciled 12/30/22 by Ila Hernandez MD bupropion HCl 150 mg PO QAM lorazepam 0.5 mg PO DAILY PRN norelgestromin-ethin.estradiol 150-35 mcg/24 hr 1 patch transdermal QWEEK semaglutide (weight loss) 1 mg (0.5 mL) subcut QWEEK 30 days venlafaxine ER 150 mg PO QAM Tobacco use date assessed: 12/30/22 Dental Screening Dental Screen Date: 12/30/22 Did you have a dental visit in the last 12 months?: Yes Did you have a dental problem in the last 6 months where you did not have access to dental care?: No Was dental information given to patient?: No HPI Annual PE HPI Details 32-year-old lady with history of PCOS,, dysfunctional uterine bleeding, generalized anxiety disorder, multinodular goiter , here today for physical exam. She has been feeling well, currently being seen by OBGYN for her PCOS and dysfunctional uterine bleeding. She was started on week ovarian has been steadily losing weight, tolerating medication well without any side effects reported. Has been compliant with healthy eating habits and getting regular exercise. [facility] Medical History (Updated 03/29/23 @ 04:26 by Ila Hernandez MD) Overweight (BMI 25.0-29.9) Bladder wall thickening Hematuria Peritoneal fluid collection Abdominal bloating with cramps Obesity (BMI 35.0-39.9 without comorbidity) Generalized anxiety disorder Multinodular goiter PCOS (polycystic ovarian syndrome) Depression with anxiety Surgical History Hx of section Family History Father No problems noted. Mother Bipolar disorder PTSD (post-traumatic stress disorder) Thyroid nodule Mental health disorder Social History Housing: Apartment Alcohol intake: current Alcohol intake frequency: a few times a month Patient Tobacco Use Status: Never used Tobacco e-Cigarette/Vaping Use: Never Used Current occupational status: employed Current occupation: [employer], PCT-pediatric Cognitive needs: No Hearing needs: No Vision needs: No Female Reproductive History Menstrual Date of last menstrual period: 12/29/22 Questionnaire PHQ-9 Over the last 2 weeks, how often have you been bothered by any of the following problems? 1. Little interest or pleasure in doing things: not at all 2. Feeling down, depressed, or hopeless: not at all 3. Trouble falling or staying asleep, or sleeping too much: not at all 4. Feeling tired or having little energy: not at all 5. Poor appetite or overeating: not at all 6. Feeling bad about yourself - or that you are a failure or have let yourself or your family down: not at all 7. Trouble concentrating on things, such as reading the newspaper or watching television: not at all 8. Moving or speaking so slowly that other people could have noticed. Or the opposite - being so fidgety or restless that you have been moving around a lot more than usual: not at all 9. Thoughts that you would be better off or of hurting yourself in some way: not at all Total score: 0 Depression Screening Interpretation: Negative (Stable controlled on venlafaxine and bupropion) 74702 - PHQ-9 Billing: Yes Source: Developed by Drs. Daniel Carney, Vahid Delcid and colleagues, with an educational carlo from [employer]. Thrive Questionnaire Date Thrive assessed: 12/04/21 AUDIT C Alcohol Use Questionnaire (AUDIT-C) 1. How often do you have a drink containing alcohol?: Never 3. How often do you have six or more drinks on one occasion?: Never Total Score: 0 MARU-7 AMB Questionnaire MARU-7 Date MARU - 7 assessed: 12/04/21 Source: Developed by Drs. Daniel Carney, Vahid Delcid and colleagues, with an educational carlo from [employer]. Review of Systems Const Denies body aches, Denies fatigue, Denies fever(s), Denies headache(s), Denies malaise and Denies weakness Eyes Denies change in vision ENT Denies dizziness and Denies headache(s) Card Denies chest pain, Denies lightheadedness, Denies palpitations and Denies dyspnea Resp Denies chest congestion, Denies cough and Denies dyspnea GI Denies abdominal pain, Denies change in bowel habits and Denies heartburn Denies hematuria, Denies urinary frequency, Denies dysuria, Denies urinary urgency and Denies vaginal discharge Musc Reports no additional complaints Skin/Breast Denies breast pain, Denies breast mass, Denies lesions and Denies rash Neuro Denies dizziness, Denies headache(s) and Denies weakness Psych Reports no additional complaints Endo Denies fatigue, Denies polydipsia, Denies polyuria and Denies palpitations Azeem/Lymph Reports no additional complaints Aller/Immun Reports no additional complaints Physical exam (Primary Care) Vital Signs: Last Vital Signs Pulse 95 12/30/22 11:16 BP 104/76 12/30/22 11:16 Pulse Ox 98 12/30/22 11:16 Oxygen Delivery Method Room Air 12/30/22 11:16 BMI result Body Mass Index 29.1 Tobacco/Smoking Status: Tobacco use Status Tobacco use date assessed 12/30/22 12/30/22 11:17 Patient Tobacco Use Status Never used Tobacco 12/30/22 11:17 e-Cigarette/Vaping Use Never Used 12/30/22 11:17 Depression Screening Interpretation: Negative (Stable controlled on venlafaxine and bupropion) Thrive Assessment: Date of Thrive Assessment Date Thrive assessed 12/04/21 12/30/22 11:17 Const General: comfortable, no acute distress, awake and Physically active Nutritional Appearance: obese Orientation/consciousness: patient oriented x3 HENMT Head: Yes normocephalic and Yes atraumatic Ears: hearing grossly normal bilaterally, external ears normal, TM's normal bilaterally and EAC's normal General nose exam: Normal external nose present Mouth: Normal oral and palatal mucosa present, oropharynx normal and moist mucous membranes Eyes General: appearance normal, both eyes and all related structures Neck Neck: Yes full ROM, Yes no lymphadenopathy and Yes supple Thyroid: Thyroid normal (Nonpalpable) Chest Chest palpation & inspection: normal inspection of the chest Breast/axilla palpation: normal palpation of the breasts Resp Effort & Inspection: normal respiratory effort Auscultation: clear to auscultation bilaterally Cardio Other: S1-S2 present regular rate and rhythm Rate: regular rate Rhythm: regular rhythm Heart sounds: S1 normal heart sound present and S2 normal heart sound present GI Inspection: Yes normal to inspection Palpation (GI): Soft to palpation, nontender, no guarding and no masses Auscultation: normal bowel sounds Other: Sees [facility] [place] [facility] for her routine Pap and pelvic exam Skin General skin exam: no rashes or lesions noted Neuro General: patient oriented x3, gait normal, tone normal, moves all extremities, Normal light touch and pain sensation, no focal motor deficits and CN's II-XI intact bilaterally Cranial nerves: Yes CN's II-XII intact bilaterally Cognition (Neuro): normal cognition Gait exam (Neuro): Normal gait present Motor exam (neuro): 5/5 motor strength present throughout Psych Appearance: grossly normal and well kempt Mental Status: mental status grossly normal Speech and movement: Normal speech and movement present Affect: normal affect Attitude: cooperative Thought process: Normal thought process present Assessment and Plan Assessment & Plan (1) Generalized anxiety disorder: Code(s): F41.1 - Generalized anxiety disorder Plan: Stable and controlled on current treatment, on venlafaxine and bupropion with lorazepam taken as needed for acute anxiety attacks. (2) Multinodular goiter: Code(s): E04.2 - Nontoxic multinodular goiter Plan: Will check TSH and free T4 (3) Annual visit for general adult medical examination with abnormal findings: Code(s): Z00.01 - Encounter for general adult medical examination with abnormal findings Plan: Will check appropriate labs. Recommended dental visit every 6 months and regular eye exams, at least every 2 years. Take adequate calcium in diet and vitamin-D 3 at 2000 IU per cap once a day, in addition to weight-bearing exercises to help maintain good muscle tone and weight control. Instructed to do self-breast exam, and recommended to get yearly mammogram, starting at age 40. Goes to [facility] [place] [facility] for her routine Pap and pelvic exam, currently up-to-date. Reminded to get her yearly flu shot, and COVID booster later this year, up-to-date with her Tdap. (4) Overweight (BMI 25.0-29.9): Code(s): E66.3 - Overweight Plan: Has been losing weight still with Wegvy,, tolerating medication well and advised to continue with healthy eating habits and regular exercise Orders: Orders Complete Blood Count Auto Diff 12/30/22 E66.9 - Obesity, unspecified, F41.1 - Generalized anxiety disorder, E04.2 - Nontoxic multinodular goiter, Z00.01 - Encounter for general adult medical examination with abnormal findings Lipid Panel 12/30/22 E66.9 - Obesity, unspecified, F41.1 - Generalized anxiety disorder, E04.2 - Nontoxic multinodular goiter, Z00.01 - Encounter for general adult medical examination with abnormal findings Basic Metabolic Panel Fasting 12/30/22 E66.9 - Obesity, unspecified, F41.1 - Generalized anxiety disorder, E04.2 - Nontoxic multinodular goiter, Z00.01 - Encounter for general adult medical examination with abnormal findings Alanine Aminotransferase 12/30/22 E66.9 - Obesity, unspecified, F41.1 - Generalized anxiety disorder, E04.2 - Nontoxic multinodular goiter, Z00.01 - Encounter for general adult medical examination with abnormal findings Aspartate Amino Transferase 12/30/22 E66.9 - Obesity, unspecified, F41.1 - Generalized anxiety disorder, E04.2 - Nontoxic multinodular goiter, Z00.01 - Encounter for general adult medical examination with abnormal findings TSH reflex Free T4 12/30/22 E04.2 - Nontoxic multinodular goiter Medications: Refilled semaglutide (weight loss) 1 mg (0.5 mL) subcut QWEEK 2 mL 2RF 30 days E66.9 - Obesity, unspecified Coding Level of Care Code Est Pt Prev Care 18-39y(77925) Diagnoses Generalized anxiety disorder F41.1 Multinodular goiter E04.2 Annual visit for general adult medical examination with abnormal findings Z00.01 Overweight (BMI 25.0-29.9) E66.3
[2022-12-30 11:16] VITALS: BP 104/76; PULSE 95; O2SAT 98; BMI 29.1
== END 2022-12-30 12:08 | disposition home or self-care (01) ==
PROVIDERS: Visit Provider Internal Medicine
DX: F41.1 Generalized anxiety disorder (principal); E04.2 Nontoxic multinodular goiter; Z00.01 Encounter for general adult medical examination with abnormal findings; E66.3 Overweight
CPT/HCPCS: 99395

== ENCOUNTER 2023-01-27 07:40 | Outpatient (REF) | payer OTHER, SELFPAY ==
[2023-01-27 11:34] LABS: Appearance Urine Cloudy; Color Urine Yellow; Glucose Urine UA Negative (Negative); Leukocyte Esterase Urine Trace (Negative); Nitrite Urine Negative (Negative); PH 5.5 (5.0-9.0); Specific Gravity - Urine 1.025 (1.005-1.025); UMIC TRIGGER UACC YES; Urine Blood Negative (Negative); Urine Ketones Trace mg/dL (Negative); Urine Protein Negative (Neg-Trace)
[2023-01-27 11:41] LABS: MANUAL DIFF FLAG NO
[2023-01-27 11:47] LABS: Bacteria Urine 2+ (None Seen); Hyaline Casts Urine 0-2 /LPF (0-2); RBC Urine 0-2 /HPF (0-2); UACC Culture Trigger YES
[2023-01-27 12:06] LABS: Basophils Absolute Auto 0.1 X10*3/uL (0.0-0.2); Basophils Percent Auto 0.6 % (0-2); Eosinophils Absolute Auto 0.2 X10*3/uL (0.0-0.4); Eosinophils Percent Auto 1.8 % (0-4); Hematocrit 37.7 % (37.0-47.0); Hemoglobin 12.1 g/dl (12.0-16.0); Imm Gran Abs Auto 0.02 X10*3/uL (0.00-0.03); Imm Gran Pct Auto 0.2 % (0.0-0.4); Lymphocytes Absolute Auto 3.1 X10*3/uL (1.2-4.9); Lymphocytes Percent Auto 34.1 % (20-40); Mean Corpuscular HGB Conc 32.1 g/dl (31.0-35.0); Mean Corpuscular Hemoglobin 29.2 pg (27.0-33.0); Mean Corpuscular Volume 91.1 fL (80.0-98.0); Mean Platelet Volume 9.2 fL (9.4-12.3); Monocytes Absolute Auto 0.6 X10*3/uL (0.1-1.2); Monocytes Percent Auto 6.5 % (2-11); Neutrophils Absolute Auto 5.2 x10*3/uL (2.0-8.3); Neutrophils Percent Auto 56.8 % (45-73); Platelet Count 439 X10*3/uL (160-400); Red Blood Count 4.14 X10*6/uL (4.20-5.50); Red Cell Distribution Width 12.7 % (11.0-16.0); White Blood Count 9.1 X10*3/uL (4.8-10.8)
[2023-01-27 12:14] LABS: Alanine Aminotransferase 9 U/L (0-31); Anion Gap 15 (12-20); Aspartate Amino Transferase 9 U/L (5-31); Blood Urea Nitrogen 8 mg/dL (9-16); Calcium 8.7 mg/dL (8.4-10.2); Carbon Dioxide 22 mmol/L (22-29); Chloride 107 mmol/L (96-108); Cholesterol 198 mg/dL; Estimated Glomerular Filt Rate > 60; Glucose Fasting 104 mg/dL (60-99); HDL Cholesterol 57 mg/dL; LDL Cholesterol Calculated 119 mg/dl; Potassium 4.2 mmol/L (3.3-5.1); Sodium 140 mmol/L (135-145); Triglycerides 110 mg/dL
[2023-01-27 12:34] LABS: TSH reflex Free T4 2.06 uIU/mL (0.32-4.0)
== END 2023-01-27 07:41 | disposition home or self-care (01) ==
LOC: HO.HMGCLDS 07:40
PROVIDERS: PCP Internal Medicine; Visit Provider Internal Medicine
DX: Z00.01 Encounter for general adult medical examination with abnormal findings (principal); E04.2 Nontoxic multinodular goiter; E66.9 Obesity, unspecified; F41.1 Generalized anxiety disorder
CPT/HCPCS: 36415; 80048; 80061; 81001; 84443; 84450; 84460; 85025; 87086; 87088; 87186

== ENCOUNTER 2023-04-04 11:29 | Outpatient (AMB) | payer OTHER, SELFPAY ==
--- NOTE | 2023-04-04 11:28 | MHC.PC.OV ---
Vital Signs 04/04/23 11:40 Height 5 ft 3 in Weight 154 lb BMI 27.3 BP 118/70 Blood Pressure Location Rt brachial Position Sitting Pulse 87 Pulse Source Pulse Oximeter Pulse Oximetry (%) 98 Oxygen Delivery Method Room Air Intake Visit Reasons: 3m follow up Intake Note: patient is here for her 3mo. F/U Allergies No Known Allergies Allergy (Verified 04/04/23 12:15) Medication List - Last Reconciled 04/04/23 by Ila Hernandez MD bupropion HCl 150 mg PO QAM levonorgestrel-ethinyl estrad 0.15-0.03 mg ([place] (28)) take 1 tablet daily following the order on blister card(s) PO lorazepam 0.5 mg PO DAILY PRN semaglutide (weight loss) (Wegovy) 1.7 mg (0.75 mL) subcut QWEEK 1 month venlafaxine ER 150 mg PO QAM Tobacco use date assessed: 04/04/23 Dental Screening Dental Screen Date: 04/04/23 Did you have a dental visit in the last 12 months?: Yes Did you have a dental problem in the last 6 months where you did not have access to dental care?: No Was dental information given to patient?: Patient has dentist HPI 3m follow up HPI Details 52-year-old lady with history of abnormal uterine bleeding, currently followed by OBGYN, has history of multinodular goiter, generalized anxiety disorder, and history of obesity, here today for follow-up. She is currently on Wegovy 1.7 mg weekly, which has been helping curb her appetite, declines any adverse effects from taking the medication and has been losing weight . Goal is to go another 10 more lb . She has been combined this with healthy eating habits and getting regular exercise. Has been feeling well, with no other complaints at present time except for prolonged menstruation, sometimes lasting 3 weeks at a time. [facility] Medical History (Updated 04/04/23 @ 12:27 by Ila Hernandez MD) Hx of obesity Abnormal uterine bleeding Overweight (BMI 25.0-29.9) Bladder wall thickening Hematuria Peritoneal fluid collection Abdominal bloating with cramps Obesity (BMI 35.0-39.9 without comorbidity) Generalized anxiety disorder Multinodular goiter PCOS (polycystic ovarian syndrome) Depression with anxiety Surgical History Hx of section Family History Father No problems noted. Mother Bipolar disorder PTSD (post-traumatic stress disorder) Thyroid nodule Mental health disorder Social History Housing: Apartment Alcohol intake: current Alcohol intake frequency: a few times a month Patient Tobacco Use Status: Never used Tobacco e-Cigarette/Vaping Use: Never Used Current occupational status: employed Current occupation: [employer], PCT-pediatric Cognitive needs: No Hearing needs: No Vision needs: No Questionnaire PHQ-9 Over the last 2 weeks, how often have you been bothered by any of the following problems? Depression Screening Interpretation: Negative (Stable controlled on venlafaxine and bupropion) Depression Screening Done: Yes Source: Developed by Drs. Daniel Carney, Kate Mcdonnell, Vahid Scott and colleagues, with an educational carlo from [employer]. Thrive Questionnaire Date Thrive assessed: 12/04/21 AUDIT C Alcohol Use Questionnaire (AUDIT-C) 1. How often do you have a drink containing alcohol?: Never Total Score: 0 MARU-7 AMB Questionnaire MARU-7 Date MARU - 7 assessed: 12/04/21 Source: Developed by Drs. Daniel Carney, Kate Mcdonnell, Vahid Scott and colleagues, with an educational carlo from [employer]. Review of Systems Const Denies body aches, Denies fatigue, Denies fever(s), Denies headache(s), Denies malaise, Denies weakness and Reports weight loss Eyes Denies change in vision ENT Denies dizziness and Denies headache(s) Card Denies chest pain, Denies lightheadedness, Denies palpitations and Denies dyspnea Resp Denies chest congestion, Denies cough and Denies dyspnea GI Denies abdominal pain, Denies change in bowel habits and Denies heartburn Reports as per HPI, Denies hematuria, Denies urinary frequency, Denies dysuria and Denies urinary urgency Musc Reports no additional complaints Skin/Breast Denies breast pain, Denies breast mass, Denies lesions and Denies rash Neuro Denies dizziness, Denies headache(s) and Denies weakness Psych Reports no additional complaints Endo Denies fatigue, Denies polydipsia, Denies polyuria and Denies palpitations Azeem/Lymph Reports no additional complaints Aller/Immun Reports no additional complaints Physical exam (Primary Care) Vital Signs: Last Vital Signs Pulse 87 04/04/23 11:40 BP 118/70 04/04/23 11:40 Pulse Ox 98 04/04/23 11:40 Oxygen Delivery Method Room Air 04/04/23 11:40 BMI result Body Mass Index 27.3 Tobacco/Smoking Status: Tobacco use Status Tobacco use date assessed 04/04/23 04/04/23 11:45 Patient Tobacco Use Status Never used Tobacco 04/04/23 11:28 e-Cigarette/Vaping Use Never Used 04/04/23 11:28 Depression Screening Interpretation: Negative (Stable controlled on venlafaxine and bupropion) Thrive Assessment: Date of Thrive Assessment Date Thrive assessed 12/04/21 04/04/23 11:28 Const General: comfortable, no acute distress, awake and Physically active Nutritional Appearance: overweight HENMT Head: Yes normocephalic and Yes atraumatic Ears: hearing grossly normal bilaterally, external ears normal, TM's normal bilaterally and EAC's normal General nose exam: Normal external nose present Mouth: Normal oral and palatal mucosa present, oropharynx normal and moist mucous membranes Eyes General: appearance normal, both eyes and all related structures Neck Neck: Yes full ROM, Yes no lymphadenopathy and Yes supple Thyroid: Thyroid normal (Nonpalpable) Resp Effort & Inspection: normal respiratory effort Auscultation: clear to auscultation bilaterally Cardio Other: S1-S2 present regular rate and rhythm Rate: regular rate Rhythm: regular rhythm Heart sounds: S1 normal heart sound present and S2 normal heart sound present GI Inspection: Yes normal to inspection Palpation (GI): Soft to palpation, nontender, no guarding and no masses Auscultation: normal bowel sounds Psych Appearance: grossly normal and well kempt Mental Status: mental status grossly normal Speech and movement: Normal speech and movement present Affect: normal affect Attitude: cooperative Thought process: Normal thought process present Assessment and Plan Assessment & Plan (1) Hx of obesity: Code(s): Z86.39 - Personal history of other endocrine, nutritional and metabolic disease Plan: Continuing to lose weight on wegovy, , will continue on 1.7 mg per injection, order compressive metabolic panel, fasting lipid panel (2) Generalized anxiety disorder: Code(s): F41.1 - Generalized anxiety disorder Plan: Stable controlled on venlafaxine and bupropion (3) Abnormal uterine bleeding: Code(s): N93.9 - Abnormal uterine and vaginal bleeding, unspecified Plan: Advised to follow-up with her OBGYN for further evaluation, CBC ordered as well as TSH with free T4 (4) Multinodular goiter: Code(s): E04.2 - Nontoxic multinodular goiter Plan: TSH and free T4 ordered Orders: Orders Complete Blood Count Auto Diff 04/04/23 E04.2 - Nontoxic multinodular goiter, F41.1 - Generalized anxiety disorder, N93.9 - Abnormal uterine and vaginal bleeding, unspecified, Z86.39 - Personal history of other endocrine, nutritional and metabolic disease Comprehensive [place]. Panel Fast 04/04/23 E04.2 - Nontoxic multinodular goiter, F41.1 - Generalized anxiety disorder, N93.9 - Abnormal uterine and vaginal bleeding, unspecified, Z86.39 - Personal history of other endocrine, nutritional and metabolic disease Vitamin D 25-OH Total 04/04/23 E04.2 - Nontoxic multinodular goiter, F41.1 - Generalized anxiety disorder, N93.9 - Abnormal uterine and vaginal bleeding, unspecified, Z86.39 - Personal history of other endocrine, nutritional and metabolic disease TSH reflex Free T4 04/04/23 E04.2 - Nontoxic multinodular goiter, F41.1 - Generalized anxiety disorder, N93.9 - Abnormal uterine and vaginal bleeding, unspecified, Z86.39 - Personal history of other endocrine, nutritional and metabolic disease Medications: Refilled semaglutide (weight loss) (Wegovy) administer weeks 13 through 16 of therapy 1.7 mg (0.75 mL) subcut QWEEK 1 month 3 mL 2RF Coding Level of Care Code Est Pt Level 4 (65204) Diagnoses Hx of obesity Z86.39 Generalized anxiety disorder F41.1 Abnormal uterine bleeding N93.9 Multinodular goiter E04.2
[2023-04-04 11:40] VITALS: BP 118/70; PULSE 87; O2SAT 98; BMI 27.3
== END 2023-04-04 14:11 | disposition home or self-care (01) ==
PROVIDERS: PCP Internal Medicine; Visit Provider Internal Medicine
DX: Z86.39 Personal history of other endocrine, nutritional and metabolic disease (principal); F41.1 Generalized anxiety disorder; N93.9 Abnormal uterine and vaginal bleeding, unspecified; E04.2 Nontoxic multinodular goiter
CPT/HCPCS: 99214

== ENCOUNTER 2023-08-29 10:52 | Outpatient (REF) | payer OTHER, SELFPAY ==
[2023-08-29 13:12] LABS: MANUAL DIFF FLAG NO
[2023-08-29 13:23] LABS: Basophils Absolute Auto 0.1 X10*3/uL (0.0-0.2); Basophils Percent Auto 0.6 % (0-2); Eosinophils Absolute Auto 0.1 X10*3/uL (0.0-0.4); Eosinophils Percent Auto 1.3 % (0-4); Hematocrit 39.1 % (37.0-47.0); Hemoglobin 12.9 g/dl (12.0-16.0); Imm Gran Abs Auto 0.02 X10*3/uL (0.00-0.03); Imm Gran Pct Auto 0.2 % (0.0-0.4); Lymphocytes Absolute Auto 2.8 X10*3/uL (1.2-4.9); Lymphocytes Percent Auto 32.9 % (20-40); Mean Corpuscular Hemoglobin 29.6 pg (27.0-33.0); Mean Corpuscular Volume 89.7 fL (80.0-98.0); Mean Platelet Volume 8.8 fL (9.4-12.3); Monocytes Absolute Auto 0.5 X10*3/uL (0.1-1.2); Monocytes Percent Auto 5.4 % (2-11); Neutrophils Percent Auto 59.6 % (45-73); Platelet Count 390 X10*3/uL (160-400); Red Blood Count 4.36 X10*6/uL (4.20-5.50); White Blood Count 8.4 X10*3/uL (4.8-10.8)
[2023-08-29 13:53] LABS: Appearance Urine Clear; Color Urine Yellow; Glucose Urine UA Negative (Negative); Leukocyte Esterase Urine Trace (Negative); Nitrite Urine Negative (Negative); PH 7.5 (5.0-9.0); UMIC TRIGGER UACC YES; Urine Blood Negative (Negative); Urine Ketones Negative (Negative); Urine Protein Negative (Neg-Trace)
[2023-08-29 14:20] LABS: Alanine Aminotransferase 8 U/L (0-31); Albumin Level 3.9 g/dL (3.5-5.0); Alkaline Phosphatase 66 U/L (39-117); Anion Gap 13 (12-20); Aspartate Amino Transferase 10 U/L (5-31); Bilirubin Total 0.4 mg/dL (0.0-1.0); Blood Urea Nitrogen 9 mg/dL (9-16); Calcium 8.6 mg/dL (8.4-10.2); Carbon Dioxide 26 mmol/L (22-29); Chloride 105 mmol/L (96-108); Estimated Glomerular Filt Rate > 60; Glucose Fasting 97 mg/dL (60-99); Potassium 4.2 mmol/L (3.3-5.1); Sodium 140 mmol/L (135-145); Total Protein 7.3 g/dL (6.5-8.0)
[2023-08-29 14:30] LABS: Bacteria Urine None Seen (None Seen); Hyaline Casts Urine 0-2 /LPF (0-2); RBC Urine 0-2 /HPF (0-2); WBC Urine 0-5 /HPF (0-5)
[2023-08-29 14:40] LABS: TSH reflex Free T4 0.69 uIU/mL (0.32-4.0)
== END 2023-08-29 10:53 | disposition home or self-care (01) ==
LOC: HO.HMGCLDS 10:52
PROVIDERS: PCP Internal Medicine; Visit Provider Internal Medicine
DX: N93.9 Abnormal uterine and vaginal bleeding, unspecified (principal); F41.1 Generalized anxiety disorder; E04.2 Nontoxic multinodular goiter; R18.8 Other ascites; R31.9 Hematuria, unspecified; R10.30 Lower abdominal pain, unspecified; Z86.39 Personal history of other endocrine, nutritional and metabolic disease
CPT/HCPCS: 36415; 80053; 81001; 82306; 84443; 85025

== ENCOUNTER 2024-01-06 11:05 | Outpatient (AMB) | payer OTHER, SELFPAY ==
--- NOTE | 2024-01-06 11:09 | A.OFFPC_ITS ---
Vital Signs 01/06/24 11:10 Height 5 ft 3 in Weight 178 lb BMI 31.5 BP 122/92 H Blood Pressure Location Rt brachial Position Sitting Pulse 70 Pulse Source Pulse Oximeter Pulse Oximetry (%) 97 Oxygen Delivery Method Room Air Intake Visit Reasons: PE Intake Note: Pt is here today for her PE Allergies No Known Allergies Allergy (Verified 01/06/24 11:17) Medication List - Last Reconciled 01/12/24 by Ila Hernandez MD bupropion HCl SR 150 mg PO QAM lorazepam 0.5 mg PO DAILY PRN venlafaxine ER 150 mg PO QAM Wegovy (semaglutide (weight loss)) 0.25 mg (0.5 mL) subcut QWEEK 1 month NS Tobacco use date assessed: 01/06/24 Dental Screening Dental Screen Date: 01/06/24 Did you have a dental visit in the last 12 months?: Yes Did you have a dental problem in the last 6 months where you did not have access to dental care?: Yes Was dental information given to patient?: Patient has dentist HPI PE HPI Details 33-year-old lady here today for physical exam. She has history of PCOS and abnormal uterine bleeding, currently followed by [facility], up-to-date with her cervical cancer screening. Has generalized anxiety disorder, currently stable on venlafaxine ER, bupropion XL and takes lorazepam as needed for acute anxiety attacks. Has history of obesity previously was on Wegovy, and was able to lose weight in addition to diet and exercise. Patient however has not been able to fill her prescription now for the last 2 months and has again been steadily gaining weight., request to be placed back on it. Denies any adverse effects when taking the medication [facility] Medical History (Updated 01/06/24 @ 11:52 by Ila Hernandez MD) Obesity (BMI 30.0-34.9) Hx of obesity Abnormal uterine bleeding Overweight (BMI 25.0-29.9) Bladder wall thickening Hematuria Peritoneal fluid collection Abdominal bloating with cramps Obesity (BMI 35.0-39.9 without comorbidity) Generalized anxiety disorder Multinodular goiter PCOS (polycystic ovarian syndrome) Depression with anxiety Surgical History Hx of section Family History Father No problems noted. Mother Bipolar disorder PTSD (post-traumatic stress disorder) Thyroid nodule Mental health disorder Social History Housing: Apartment Alcohol intake: current Alcohol intake frequency: a few times a month Patient Tobacco Use Status: Never used Tobacco e-Cigarette/Vaping Use: Never Used Current occupational status: employed Current occupation: [employer], PCT-pediatric Cognitive needs: No Hearing needs: No Vision needs: No Female Reproductive History Menstrual Duration of menses: 8-10 days Date of last menstrual period: 12/07/23 Questionnaire PHQ-9 Over the last 2 weeks, how often have you been bothered by any of the following problems? 1. Little interest or pleasure in doing things: not at all 2. Feeling down, depressed, or hopeless: not at all 3. Trouble falling or staying asleep, or sleeping too much: not at all 4. Feeling tired or having little energy: not at all 5. Poor appetite or overeating: not at all 6. Feeling bad about yourself - or that you are a failure or have let yourself or your family down: not at all 7. Trouble concentrating on things, such as reading the newspaper or watching television: not at all 8. Moving or speaking so slowly that other people could have noticed. Or the opposite - being so fidgety or restless that you have been moving around a lot more than usual: not at all 9. Thoughts that you would be better off or of hurting yourself in some way: not at all Total score: 0 Depression Screening Interpretation: Negative Depression Screening Done: Yes 67195 - PHQ-9 Billing: Yes Source: Developed by Drs. Daniel Carney, Kate Mcdonnell, Vahid Scott and colleagues, with an educational carlo from [employer]. Thrive Questionnaire Date Thrive assessed: 01/06/24 I am a: Patient What is your living situation today?: I have a steady place to live Within the past 12 months, did the food you bought not last and you didn't have the money to get more?: Never true Within the past 12 months, did you worry whether your food would run out before you got money to buy more?: Never true Do you have trouble paying for medicines?: No Do you have trouble getting transportation to medical appointments?: No Do you have trouble paying your heating and electricity bill?: No Do you have trouble taking care of your child, family member or friend?: No Do you have trouble with day-to-day activities such as bathing, preparing meals, shopping, managing finances, etc.?: No Are you currently unemployed and looking for a job?: No Are you interested in more education?: No THRIVE Score: 0 AUDIT C Alcohol Use Questionnaire (AUDIT-C) 1. How often do you have a drink containing alcohol?: Never 2. How many drinks containing alcohol do you have on a typical day when you are drinking?: 1 or 2 Total Score: 0 MARU-7 AMB Questionnaire MARU-7 Date MARU - 7 assessed: 01/06/24 Feeling nervous, anxious, or on edge: 0 = Not at all Not being able to stop or control worryin = Not at all Worrying too much about different things: 0 = Not at all Trouble relaxin = Not at all Being so restless that it is hard to sit still: 0 = Not at all Becoming easily annoyed or irritable: 0 = Not at all Feeling afraid as if something awful might happen: 0 = Not at all Total MARU-7 score (0-4 normal; 5-9 mild; 10-14 moderate; 15-21 severe): 0 Source: Developed by Drs. Daniel Carney, Kate Mcdonnell, Vahid Scott and colleagues, with an educational carlo from [employer]. Review of Systems Const Denies body aches, Denies fatigue, Denies fever(s), Denies headache(s), Denies malaise, Denies weakness and Reports weight loss Eyes Denies change in vision ENT Denies dizziness and Denies headache(s) Card Denies chest pain, Denies lightheadedness, Denies palpitations and Denies dyspnea Resp Denies chest congestion, Denies cough and Denies dyspnea GI Denies abdominal pain, Denies change in bowel habits and Denies heartburn Reports as per HPI, Denies hematuria, Denies urinary frequency, Denies dysuria and Denies urinary urgency Musc Reports no additional complaints Skin/Breast Denies breast pain, Denies breast mass, Denies lesions and Denies rash Neuro Denies dizziness, Denies headache(s) and Denies weakness Psych Reports no additional complaints Endo Denies fatigue, Denies polydipsia, Denies polyuria and Denies palpitations Azeem/Lymph Reports no additional complaints Aller/Immun Reports no additional complaints Physical exam (Primary Care) Vital Signs: Last Vital Signs Pulse 70 01/06/24 11:10 BP 122/92 H 01/06/24 11:10 Pulse Ox 97 01/06/24 11:10 Oxygen Delivery Method Room Air 01/06/24 11:10 BMI result Body Mass Index 31.5 Tobacco/Smoking Status: Tobacco use Status Tobacco use date assessed 01/06/24 01/06/24 11:21 Patient Tobacco Use Status Never used Tobacco 01/06/24 11:11 e-Cigarette/Vaping Use Never Used 01/06/24 11:11 Depression Screening Interpretation: Negative Thrive Assessment: Date of Thrive Assessment Date Thrive assessed 12/04/21 01/06/24 11:11 Const General: comfortable, no acute distress, awake and Physically active Nutritional Appearance: obese Orientation/consciousness: patient oriented x3 HENMT Head: Yes normocephalic and Yes atraumatic Ears: hearing grossly normal bilaterally, external ears normal, TM's normal bilaterally and EAC's normal General nose exam: Normal external nose present Mouth: Normal oral and palatal mucosa present, oropharynx normal and moist mucous membranes Eyes General: appearance normal, both eyes and all related structures Neck Neck: Yes full ROM, Yes no lymphadenopathy and Yes supple Thyroid: Thyroid normal (Nonpalpable) Chest Breast/axilla palpation: normal palpation of the breasts Resp Effort & Inspection: normal respiratory effort Auscultation: clear to auscultation bilaterally Cardio Other: S1-S2 present regular rate and rhythm Rate: regular rate Rhythm: regular rhythm Heart sounds: S1 normal heart sound present and S2 normal heart sound present GI Inspection: Yes normal to inspection Palpation (GI): Soft to palpation, nontender, no guarding and no masses Auscultation: normal bowel sounds Other: Goes to [facility] for her routine Pap and pelvic exam General: Yes no CVA tenderness Back/Spine/Pelvis Back: no CVA tenderness and No back tenderness Skin General skin exam: no rashes or lesions noted Neuro General: patient oriented x3, gait normal, tone normal, moves all extremities, Normal light touch and pain sensation and no focal motor deficits Extrem General: Yes full ROM, Yes no joint enlargement, Yes no clubbing, cyanosis or edema and Yes normal gait Psych Appearance: grossly normal and well kempt Mental Status: mental status grossly normal Speech and movement: Normal speech and movement present Affect: normal affect Attitude: cooperative Thought process: Normal thought process present Results Reviewed Results Reviewed: Laboratory Tests 08/29/23 10:57 WBC 8.4 Hgb 12.9 Hct 39.1 RDW 13.0 Plt Count 390 Name: Hetal Sandoval Age/Sex: 33/F : 1990 Unit#: [id number] Attend Dr: Ila Hernandez MD Re08/29/23 Status: DEP REF Location: [facility] Disch: SPEC : [id number] JERRY: 08/29/23-1056 STATUS: COMP REQ : [id number] RECD: 08/29/23-[address]: Ila Hernandez MD COMP: 08/29/23-1440 ENTERED: 08/29/23-[address]: ORDERED: CMP Fast, Vitamin D 25-OH, TSH Rflx Test Result Flag Reference Sodium 140 135-145 mmol/L Potassium 4.2 3.3-5.1 mmol/L CL 105 96-108 mmol/L CO2 26 22-29 mmol/L Gap 13 12-20 BUN 9 9-16 mg/dL Creat 0.69 0.5-1.4 mg/dL EGFR > 60 NOTE: For -[place] individuals, multiply the result by 1.210. Chronic Kidney Disease: Estimated GFR < 60 mL/min/1.73m2 Severe Kidney Disease: Estimated GFR < 15 mL/min/1.73m2 FBS 97 60-99 mg/dL CA 8.6 8.4-10.2 mg/dL Total Bili 0.4 0.0-1.0 mg/dL AST (GOT) 10 5-31 U/L ALT (GPT) 8 0-31 U/L Protein, Total 7.3 6.5-8.0 g/dL Alb 3.9 3.5-5.0 g/dL Alk Phos 66 39-117 U/L Vit D 25-OH Tot 39.0 >30 ng/mL Health Based Reference Values* < 20 ng/mL Deficient 20-30 ng/mL Insufficient > 30 ng/mL Sufficient *Dale VAZ. N Engl J Med. 2007;357:266-280 Care must be taken in interpreting Vitamin D results from different laboratories and methodologies. Published data demonstrated that results from patients undergoing hemodialysis may show a negative bias when tested with various automated 25-OH vitamin D assays when compared to LC-MS/MS. When testing samples from patients whose predominant form of Vitamin D is Vitamin D2, such as patients receiving Vitamin D2 supplementation, results that are subtherapeutic should be confirmed with another method such as LC-MS/MS. TSH 0.69 0.32-4.0 uIU/mL Assessment and Plan Assessment & Plan (1) PCOS (polycystic ovarian syndrome): Comment: sees Dr Hernandes Code(s): E28.2 - Polycystic ovarian syndrome Plan: Followed at [facility] (2) Generalized anxiety disorder: Code(s): F41.1 - Generalized anxiety disorder Plan: Continue with bupropion HCL SR, lorazepam as needed and venlafaxine ER (3) Abnormal uterine bleeding: Code(s): N93.9 - Abnormal uterine and vaginal bleeding, unspecified Plan: Followed at [facility] (4) Obesity (BMI 30.0-34.9): Code(s): E66.9 - Obesity, unspecified Plan: Reinforced importance of following healthy eating habits and getting regular exercise. Will restart back on Wegovy at 0.25 mg injected subcutaneously once a week. Reviewed again possible side effects of the medication, (5) Annual visit for general adult medical examination with abnormal findings: Code(s): Z00.01 - Encounter for general adult medical examination with abnormal findings Plan: Lab fasting lab results were within normal. Continue regular dental visit every 6 months and regular eye exams, at least every 2 years. Take adequate calcium in diet and vitamin-D 3 at 2000 IU per cap once a day, in addition to weight- bearing exercises to help maintain good muscle tone and weight control. Instructed to do self-breast exam, and recommended to get yearly mammogram, starting at age 40. Does not want to get COVID booster, up-to-date with her flu shot and Tdap Orders: Orders Comprehensive [place]. Panel Fast 01/06/24 E66.9 - Obesity, unspecified, Z00.01 - Encounter for general adult medical examination with abnormal findings Medications: New Wegovy (semaglutide (weight loss)) administer weeks 1 through 4 of therapy 0.25 mg (0.5 mL) subcut QWEEK 1 month 2 mL 0RF NS E28.2 - Polycystic ovarian syndrome, E66.9 - Obesity, unspecified, F41.1 - Generalized anxiety disorder, N93.9 - Abnormal uterine and vaginal bleeding, unspecified Coding Level of Care Code Est Pt Prev Care 18-39y([id number]) Diagnoses PCOS (polycystic ovarian syndrome) E28.2 Generalized anxiety disorder F41.1 Abnormal uterine bleeding N93.9 Obesity (BMI 30.0-34.9) E66.9 Annual visit for general adult medical examination with abnormal findings Z00.01
[2024-01-06 11:10] VITALS: BP 122/92; PULSE 70; O2SAT 97; BMI 31.5
== END 2024-01-06 11:54 | disposition home or self-care (01) ==
PROVIDERS: PCP Internal Medicine; Visit Provider Internal Medicine
DX: Z00.00 Encounter for general adult medical examination without abnormal findings (principal); E66.9 Obesity, unspecified; Z68.31 Body mass index [BMI] 31.0-31.9, adult; E28.2 Polycystic ovarian syndrome; F41.1 Generalized anxiety disorder; N93.9 Abnormal uterine and vaginal bleeding, unspecified
CPT/HCPCS: 99395

== ENCOUNTER → 2024-01-26 09:36 | Outpatient (BNVA) | payer OTHER, SELFPAY | PROVIDERS: PCP Internal Medicine; Visit Provider Physician Assistant Surgical ==

== ENCOUNTER 2024-05-20 08:05 | Outpatient (AMB) | payer OTHER, SELFPAY ==
[2024-05-20 08:14] VITALS: BP 114/78; PULSE 100; O2SAT 100
--- NOTE | 2024-05-20 08:14 | AM.OFFWIN_ITS ---
Intake Vital Signs 05/20/24 08:14 Weight 180 lb BP 114/78 Blood Pressure Location Rt brachial Position Sitting Pulse 100 Pulse Source Pulse Oximeter Pulse Oximetry (%) 100 Oxygen Delivery Method Room Air Intake Visit Reasons: EP RT ankle swelling/red diff walk Intake Note: Patient here for right ankle pain that started yesterday and is having difficulty walking. She states she may have missed a step on friday but it was not hurting afterwards. Patient Tobacco Use Status: Never used Tobacco Allergies No Known Allergies Allergy (Verified 05/20/24 08:16) Do you need a note to return to daycare/school/sports/work: Yes HPI EP RT ankle swelling/red diff walk HPI Details This note is constructed using voice recognition software. While every effort has been made to ensure accuracy, teachers' assistant errors may have been included. The patient is a 33 year old female who presents to the clinic today with right medial ankle pain since yesterday. She reports that on Friday she missed a step, she does not recall if she landed hard, or rolled her ankle as it did not hurt right away. She had no pain until 2 days later which was yesterday, when she realized there was quite a bit of swelling and some bruising. She shows a picture of bruising on the medial ankle. She has tried elevation, but no other interventions for the pain. She reports some difficulty walking on it. [facility] Medical History (Updated 01/06/24 @ 11:52 by Ila Hernandez MD) Obesity (BMI 30.0-34.9) Hx of obesity Abnormal uterine bleeding Overweight (BMI 25.0-29.9) Bladder wall thickening Hematuria Peritoneal fluid collection Abdominal bloating with cramps Obesity (BMI 35.0-39.9 without comorbidity) Generalized anxiety disorder Multinodular goiter PCOS (polycystic ovarian syndrome) Depression with anxiety Surgical History Hx of section Family History Father No problems noted. Mother Bipolar disorder PTSD (post-traumatic stress disorder) Thyroid nodule Mental health disorder Social History Housing: Apartment Alcohol intake: current Alcohol intake frequency: a few times a month Patient Tobacco Use Status: Never used Tobacco e-Cigarette/Vaping Use: Never Used Current occupational status: employed Current occupation: [employer], [employer]-ped[employer] Cognitive needs: No Hearing needs: No Vision needs: No Review of Systems Const All systems reviewed & are unremarkable except as noted in HPI and below Physical Exam Vital Signs: Last Vital Signs Pulse 100 05/20/24 08:14 BP 114/78 05/20/24 08:14 Pulse Ox 100 05/20/24 08:14 Oxygen Delivery Method Room Air 05/20/24 08:14 Const General: cooperative, healthy appearing, comfortable, no acute distress and well developed Orientation/consciousness: patient oriented x3 Limitations: no limitations Resp Effort & Inspection: normal respiratory effort and able to speak in complete sentences Skin General skin exam: no rashes or lesions noted Neuro General: patient oriented x3 Extrem Other: Tender to palpation right medial malleolus with mild ecchymosis, and edema pain traveling upwards slightly to distal fibula. Reduced lateral rotation, flexion extension normal. Achilles tendon intact. Strength 5/5. Results Reviewed Results Reviewed: XR images contemporaneously read by me with normal findings, no fracture obvious. Assessment & Plan Assessment & Plan (1) Right ankle strain: Code(s): S96.911A - Strain of unspecified muscle and tendon at ankle and foot level, right foot, initial encounter Qualifiers: Encounter type: initial encounter Qualified Code(s): S96.911A - Strain of unspecified muscle and tendon at ankle and foot level, right foot, initial encounter Plan: X-ray obtained due to location of pain, however appears negative. Advised rest, ice, compression, elevation for strain. Advised a few days off from work for allowing appropriate resolution of symptoms. Advised follow up with PCP with ongoing symptoms or worsening or failure to resolve. Advised NSAIDs for pain. Fredrick wrap applied in office. Plan See above for full details and plan. Orders: Orders XR ankle RT min 3V Today M25.571 - Pain in right ankle and joints of right foot Coding Level of Care Code Est Pt Level 4 (98426) Diagnoses Strain of right ankle, initial encounter S96.911A Encounter type: initial encounter
== END 2024-05-20 09:27 | disposition home or self-care (01) ==
PROVIDERS: PCP Internal Medicine; Visit Provider Registered Nurse
DX: S96.911A Strain of unspecified muscle and tendon at ankle and foot level, right foot, initial encounter (principal)

== ENCOUNTER 2024-05-20 08:05 | Outpatient (REF) | payer OTHER, SELFPAY ==
--- NOTE | ~2024-05-20 | XR_ITS ---
EXAMINATION: XR ANKLE, RIGHT CLINICAL INFORMATION: M25.571 - Pain in right ankle and joints of right foot COMPARISON: None available. TECHNIQUE: AP, lateral, and mortise views of the right ankle. FINDINGS: No fracture. Alignment is anatomic. No erosions. Joint spaces are maintained. Soft tissues are normal. XR/XR ankle RT min 3V IMPRESSION: Normal right ankle. Electronically signed by: Shay Patterson MD 05/20/2024 01:00 PM YASMANY
== END 2024-05-20 08:06 | disposition home or self-care (01) ==
LOC: HO.HMGCX 08:05
PROVIDERS: PCP Internal Medicine; Visit Provider Registered Nurse
DX: M25.571 Pain in right ankle and joints of right foot (principal); S96.911A Strain of unspecified muscle and tendon at ankle and foot level, right foot, initial encounter
CPT/HCPCS: 73610; 99212

== ENCOUNTER 2025-01-18 10:02 | Outpatient (AMB) | payer OTHER, SELFPAY ==
[2025-01-18 10:12] VITALS: BP 140/98; PULSE 82; RESP 16; TEMP 36.8; O2SAT 98; BMI 32.9
--- NOTE | 2025-01-18 10:12 | A.OFFPC_ITS ---
Vital Signs 01/18/25 10:12 Height 5 ft 3 in Weight 186 lb BMI 32.9 BP 140/98 H Blood Pressure Location Lt brachial Position Sitting Respiration 16 Pulse 82 Pulse Source Pulse Oximeter Temp 98.2 F Temp Source Oral Pulse Oximetry (%) 98 Oxygen Delivery Method Room Air Intake Visit Reasons: annual exam Intake Note: Pt is here for her annual PE. Last PAP 10/17/22 repeat in 5 years. [employer] Required: No Accompanied by: Self / Same As Patient Allergies No Known Allergies Allergy (Verified 01/18/25 10:46) Medication List - Last Reconciled 01/18/25 by Ila Hernandez MD bupropion HCl SR 300 mg PO QAM escitalopram oxalate 10 mg PO DAILY lorazepam 0.5 mg PO DAILY PRN Tobacco use date assessed: 01/18/25 Dental Screening Dental Screen Date: 01/18/25 Did you have a dental visit in the last 12 months?: Yes Did you have a dental problem in the last 6 months where you did not have access to dental care?: No Was dental information given to patient?: Patient has dentist HPI annual exam HPI Details 34 year-old lady here today for physical exam. She has history of PCOS and abnormal uterine bleeding, currently followed by [facility], up-to-date with her cervical cancer screening, with last Pap smear done 10/17/2022, due for a recheck in 5 years - reports Irregular menstruation: The patient reports having menstrual periods approximately every two months, which are heavy when they occur. Up-to- date with her cervical cancer screening, last done in 2022 with benign findings. - Hypertension: The patient has elevated blood pressure readings, which may be contributing to her headaches. - Headache: The patient experiences head aches, which she suspects may be related to her current medication, Wellbutrin. - Polycystic ovary syndrome (PCOS): The patient has a history of PCOS, which has contributed to and mild facial hirsutism. - Prediabetes: The patient was previousl y diagnosed with prediabetes, which has improved with weight loss. - Anxiety and Depression: The patient is currently managing anxiety and depression with medications including Wellbutrin and citalopram. - Facial hirsutism: The patient reports increased facial hair growth, which she attributes to PCOS. -.- Vaccinations: Patient reports being up to date with vaccinations. - Weight management: Patient is consider ing weight loss options and has previously been on Wegovy. - Eye care: Advised to follow up with an eye doctor every two years due to potential vision side effects from medications. Patient was informed and verbally consented to the use of an ambient scribe for clinic note documentation during this visit. . [facility] Medical History (Updated 01/18/25 @ 11:00 by Ila Hernandez MD) Prediabetes Obesity (BMI 30.0-34.9) Hx of obesity Abnormal uterine bleeding Overweight (BMI 25.0-29.9) Bladder wall thickening Hematuria Peritoneal fluid collection Abdominal bloating with cramps Obesity (BMI 35.0-39.9 without comorbidity) Generalized anxiety disorder Multinodular goiter PCOS (polycystic ovarian syndrome) Depression with anxiety Surgical History S/P breast augmentation S/P abdominoplasty Hx of section Family History Father No problems noted. Mother Bipolar disorder PTSD (post-traumatic stress disorder) Thyroid nodule Mental health disorder Social History Housing: Apartment Alcohol intake: current Alcohol intake frequency: a few times a month Patient Tobacco Use Status: Never used Tobacco e-Cigarette/Vaping Use: Never Used Current occupational status: employed Current occupation: [employer], [employer]-pediatric Cognitive needs: No Hearing needs: No Vision needs: No Questionnaire PHQ-9 Over the last 2 weeks, how often have you been bothered by any of the following problems? 1. Little interest or pleasure in doing things: not at all 2. Feeling down, depressed, or hopeless: not at all 3. Trouble falling or staying asleep, or sleeping too much: several days 4. Feeling tired or having little energy: nearly every day 5. Poor appetite or overeating: not at all 6. Feeling bad about yourself - or that you are a failure or have let yourself or your family down: not at all 7. Trouble concentrating on things, such as reading the newspaper or watching television: not at all 8. Moving or speaking so slowly that other people could have noticed. Or the opposite - being so fidgety or restless that you have been moving around a lot more than usual: not at all 9. Thoughts that you would be better off or of hurting yourself in some way: not at all Total score: 4 Depression Screening Interpretation: Negative Depression Screening Done: Yes 49561 - PHQ-9 Billing: Yes Source: Developed by Drs. Daniel Carney, Kate Mcdonnell, Vahid Scott and colleagues, with an educational carlo from [employer]. Thrive Questionnaire Date Thrive assessed: 01/15/25 I am a: Patient What is your living situation today?: I have a steady place to live Within the past 12 months, did the food you bought not last and you didn't have the money to get more?: Never true Within the past 12 months, did you worry whether your food would run out before you got money to buy more?: Never true Do you have trouble paying for medicines?: No Do you have trouble getting transportation to medical appointments?: No Do you have trouble paying your heating and electricity bill?: No Do you have trouble taking care of your child, family member or friend?: No Do you have trouble with day-to-day activities such as bathing, preparing meals, shopping, managing finances, etc.?: No Are you currently unemployed and looking for a job?: No Are you interested in more education?: No Please select the resources that you would like help with: None Currently or been in a relationship where the following occur: No concerns reported THRIVE Score: 0 AUDIT C Alcohol Use Questionnaire (AUDIT-C) 1. How often do you have a drink containing alcohol?: Monthly or less 2. How many drinks containing alcohol do you have on a typical day when you are drinking?: 1 or 2 3. How often do you have six or more drinks on one occasion?: Never Total Score: 1 MARU-7 AMB Questionnaire MARU-7 Date MARU - 7 assessed: 01/18/25 Feeling nervous, anxious, or on edge: 1 = Several days Not being able to stop or control worryin = Several days Worrying too much about different things: 1 = Several days Trouble relaxin = Several days Being so restless that it is hard to sit still: 0 = Not at all Becoming easily annoyed or irritable: 0 = Not at all Feeling afraid as if something awful might happen: 1 = Several days Total MARU-7 score (0-4 normal; 5-9 mild; 10-14 moderate; 15-21 severe): 5 Source: Developed by Drs. Daniel Carney, Kate Mcdonnell, Vahid Scott and colleagues, with an educational carlo from [employer]. MARU-7 Assessment Billing MARU-7 Assessment Tool: MARU-7 Assessment 62864 Review of Systems Const Denies body aches, Denies fatigue, Denies fever(s), Denies headache(s), Denies malaise, Denies weakness and Reports weight loss Eyes Denies change in vision ENT Denies dizziness and Denies headache(s) Card Denies chest pain, Denies lightheadedness, Denies palpitations and Denies dyspnea Resp Denies chest congestion, Denies cough and Denies dyspnea GI Denies abdominal pain, Denies change in bowel habits and Denies heartburn Reports as per HPI, Denies hematuria, Denies urinary frequency, Denies dysuria and Denies urinary urgency Musc Reports no additional complaints Skin/Breast Denies breast pain, Denies breast mass, Denies lesions and Denies rash Neuro Denies dizziness, Denies headache(s) and Denies weakness Psych Reports no additional complaints Endo Denies fatigue, Denies polydipsia, Denies polyuria and Denies palpitations Azeem/Lymph Reports no additional complaints Aller/Immun Reports no additional complaints Physical exam (Primary Care) Vital Signs: Last Vital Signs Temp 98.2 F 01/18/25 10:12 Pulse 82 01/18/25 10:12 Resp 16 01/18/25 10:12 BP 140/98 H 01/18/25 10:12 Pulse Ox 98 01/18/25 10:12 Oxygen Delivery Method Room Air 01/18/25 10:12 BMI result Body Mass Index 32.9 Tobacco/Smoking Status: Tobacco use Status Tobacco use date assessed 01/18/25 01/18/25 10:15 Patient Tobacco Use Status Never used Tobacco 01/18/25 10:15 e-Cigarette/Vaping Use Never Used 01/18/25 10:15 PHQ-9: PHQ-9 Score PHQ-9: Total score 4 01/23/25 23:44 Depression Screening Interpretation: Negative Thrive Assessment: Date of Thrive Assessment Date Thrive assessed 01/15/25 01/18/25 10:15 Currently or been in a relationship where the following occur: No concerns reported Const General: no acute distress and awake Nutritional Appearance: obese Orientation/consciousness: patient oriented x3 HENMT Head: Yes normocephalic Ears: hearing grossly normal bilaterally, external ears normal, TM's normal bilaterally and EAC's normal General nose exam: Normal external nose present Mouth: Normal oral and palatal mucosa present, oropharynx normal and moist mucous membranes Eyes General: appearance normal, both eyes and all related structures Neck Neck: Yes full ROM, Yes no lymphadenopathy and Yes supple Thyroid: Thyroid normal (Nonpalpable) Chest Breast/axilla palpation: normal palpation of the breasts Resp Effort & Inspection: normal respiratory effort Auscultation: clear to auscultation bilaterally Cardio Other: S1-S2 present regular rate and rhythm Rate: regular rate Rhythm: regular rhythm Heart sounds: S1 normal heart sound present and S2 normal heart sound present GI Inspection: Yes normal to inspection Palpation (GI): Soft to palpation, nontender, no guarding and no masses Auscultation: normal bowel sounds Other: Goes to [facility] for her routine Pap and pelvic exam General: Yes no CVA tenderness Back/Spine/Pelvis Back: no CVA tenderness and No back tenderness Skin General skin exam: no rashes or lesions noted Neuro General: patient oriented x3, gait normal, tone normal, moves all extremities, Normal light touch and pain sensation and no focal motor deficits Extrem General: Yes full ROM, Yes no joint enlargement, Yes no clubbing, cyanosis or edema and Yes normal gait Psych Appearance: grossly normal and well kempt Mental Status: mental status grossly normal Speech and movement: Normal speech and movement present Affect: normal affect Attitude: cooperative Thought process: Normal thought process present Results Reviewed Results Reviewed: Name: Hetal Sandoval Age/Sex: 33/F : 1990 Unit#: [id number] Attend Dr: Ila Hernandez MD Re08/29/23 Status: DEP REF Location: [facility] Disch: SPEC : [id number] JERRY: 08/29/23-105 STATUS: COMP REQ : [id number] RECD: 08/29/23 [facility] DR: Ila Hernandez MD COMP: 08/29/23 ENTERED: 08/29/[address] [facility] [address]: ORDERED: CBC Auto Diff Test Result Flag Reference WBC 8.4 4.8-10.8 X10*3/uL RBC 4.36 4.20-5.50 X10*6/uL HGB 12.9 12.0-16.0 g/dl HCT 39.1 37.0-47.0 % MCV 89.7 80.0-98.0 fL MCH 29.6 27.0-33.0 pg MCHC 33.0 31.0-35.0 g/dl RDW 13.0 11.0-16.0 % PLT 390 160-400 X10*3/uL MPV 8.8 L 9.4-12.3 fL Neut Pct Auto 59.6 45-73 % ImGran Pct Auto 0.2 0.0-0.4 % Lymp Pct Auto 32.9 20-40 % Windsor Pct Auto 5.4 2-11 % Eos Pct Auto 1.3 0-4 % Baso Pct Auto 0.6 0-2 % NRBC Pct Auto 0.0 0.0-0.2 /100WBC ANC Neut Abs # 5.0 2.0-8.3 x10*3/uL ImGran Abs Auto 0.02 0.00-0.03 X10*3/uL Lymph Abs Auto 2.8 1.2-4.9 X10*3/uL Windsor Abs Auto 0.5 0.1-1.2 X10*3/uL Eos Abs Auto 0.1 0.0-0.4 X10*3/uL Baso Abs Auto 0.1 0.0-0.2 X10*3/uL NRBC Abs Auto 0.000 0.0-0.012 X10*3/uL Coding Level of Care Code Est Pt Prev Care 18-39y(70908) Diagnoses Annual visit for general adult medical examination with abnormal findings Z00.01 Generalized anxiety disorder F41.1 Multinodular goiter E04.2 PCOS (polycystic ovarian syndrome) E28.2 Obesity (BMI 30.0-34.9) E66.9 Prediabetes R73.03 Additional Codes MARU-7 Assessment Billing - MARU-7 Assessment Tool: MARU-7 Assessment 66025 ([id number]) PHQ-9 - 61598 - PHQ-9 Billing: Yes ([id number]) Assessment & Plan Assessment & Plan (1) Annual visit for general adult medical examination with abnormal findings: Code(s): Z00.01 - Encounter for general adult medical examination with abnormal findings Plan: Patient to reschedule appointment with OBGYN in [facility] regarding abnormal uterine bleeding and for her cervical cancer screen (2) Generalized anxiety disorder: Code(s): F41.1 - Generalized anxiety disorder Category: Medical (3) Multinodular goiter: Code(s): E04.2 - Nontoxic multinodular goiter Category: Medical (4) PCOS (polycystic ovarian syndrome): Comment: sees Dr Hernandes Code(s): E28.2 - Polycystic ovarian syndrome Category: Medical (5) Obesity (BMI 30.0-34.9): Code(s): E66.9 - Obesity, unspecified Category: Medical (6) Prediabetes: Code(s): R73.03 - Prediabetes Category: Medical Plan The patient will undergo a comprehensive blood workup including CBC, cholesterol, A1c, liver function, and kidney function tests to assess her current health status and manage her hypertension and prediabetes. For her irregular menstruation, a follow-up with her TANN[facility] GUMMER is recommended to explore potential hormonal treatments or procedures such as hysteroscopy. The patient is advised to monitor her blood pressure regularly and consider lifestyle modifications to manage her hypertension. Regarding her headaches, a reduction in Wellbutrin dosage is planned to assess if it alleviates her symptoms. For weight management, the patient is considering starting Zepbound, pending insurance approval, and is advised to follow a diet that is easy to digest on injection days. The patient is encouraged to continue managing her anxiety and depression with her current medications and to follow up with a psychiatrist if needed. Patient was informed and verbally consented to the use of an ambient scribe for clinic note documentation during this visit. Orders: Orders Complete Blood Count Auto Diff 01/18/25 Z86.2 - Personal history of diseases of the blood and blood-forming organs and certain disorders involving the immune mechanism Medications: New escitalopram oxalate 10 mg PO DAILY 30 tabs 2RF Zepbound (tirzepatide (weight loss)) 2.5 mg (0.5 mL) subcut QWEEK 2 mL 2RF NS E28.2 - Polycystic ovarian syndrome, E66.9 - Obesity, unspecified, R73.03 - Prediabetes bupropion HCl XL (Wellbutrin XL) 150 mg PO QAM 30 tabs 2RF F41.1 - Generalized anxiety disorder
--- OUTSIDE RECORDS SUMMARY | 2025-01-18 10:59 | XMS_ITS | Clinical Summary ---
[facility] [address] [place] [address] Care Team Providers Care [employer] Name Role Phone Ila Hernandez MD Primary Care Provider Surgical History Surgery Date Site/Laterality Comments SECTION 2006 PROCEDURE: HISTORICAL DELIVERY WISDOM TOOTH EXTRACTION 2013 PROCEDURE: HISTORICAL WISDOM TEETH EXTRACTION Medical History Medical History Date Comments Depression DX:Depression Gestational diabetes DX:Gestatio nal diabetes Anxiety DX:Anxiety HPV (human papilloma virus) anogenital infection DX:HPV (human papilloma viru s) anogenital infection Family History Medical History Relation Name Comments Other: Other Father drug abuse Colon cancer Maternal Grandfather lung ca ncer, alcohol abuse Diabetes Maternal Grandmother Other cancer Mother cervical cancer diagnosed in mid 20s Breast cancer Mother's side 1 aunt, ? ova kirstie (no chemotherapy) Pancreatic cancer Neg Hx Prostate cancer Neg Hx Relation Name Status Comments Father Alive Maternal Grandfather Maternal Grandmother Alive Mother Alive Mother's side 1 Mother's side 2 Paternal Grandfather Alive Paternal Grandmother Alive Sister 1 Alive Sister 2 Alive Son Alive Social History Tobacco Use Types Packs/Day Years Used Date Smoking Tobacco: Never Smokeless Tobacco: Never Alcohol Use Standard Drinks/Week Comments Not Currently 0 (1 standard drink = 0.6 oz pur e alcohol) Comments Unknown Sex and Gender Information Value Date Recorded Sex Assigned at Not on file Legal Sex Female 1:57 PM EST Gender Identity Not on file Sexual Orientation Not on file Obstetrics History Last Filed Vital Signs Vital Sign Reading Time Taken Comments Blood Pressure 117/79 08/29/2023 10:26 AM EST Pulse 90 08/29/2023 10:26 AM EST Temperature - - Respiratory Rate - - Oxygen Saturation - - Inhaled Oxygen Concentration - - Weight 70.7 kg (155 lb 12.8 oz) 024 10:26 AM EST Height 160 cm (5' 3 ) 08/29/2023 10:26 AM EST Body Mass Index 27.6 08/29/2023 10:26 AM EST Plan of Treatment Health Maintenance Due Date Last Done Comments Cervical Cancer Screening: Pap Smear 2010 DTaP,Tdap,and Td Vaccines (7 - Td or Tdap) 07/02/2012 07/02/2002, 03/11/1994, 01/18/1991, Additional history exists HIV Screening 05/29/2022 Hepatitis C Screening 05/29/2022 Social Influencers of Health Screening 05/29/2022 COVID-19 Vaccine ( season) 2024 Depression Screening 06/30/2024 Influenza Vaccine (#1) 2025 04/28/2014 IPV Vaccines Completed 01/18/1991, 11/29, 1989, Additional history exists MMR Vaccines Completed 08/11/1999, 1990 Hepatitis B Vaccines Completed 04/21/2000, 09/15/1999, 08/11/1999 Varicella Vaccines Aged Out 07/02/2002 No longer eligible based on patient's age to complete this topic HIB Vaccines Aged Out No longer eligi ble based on patient's age to complete this topic HPV Vaccines Aged Out No longer eligi ble based on patient's age to complete this topic Hepatitis A Vaccines Aged Out No long er eligible based on patient's age to complete this topic Meningococcal ACWY Vaccine Aged Out N o longer eligible based on patient's age to complete this topic Meningococcal B Vaccine Aged Out No l onger eligible based on patient's age to complete this topic Pneumococcal Vaccine: Pediatrics (0 to 5 Years) and At-Risk Patients (6 to 49 Years) Aged Out No longer eligible based on patient's age to complete this topic RSV Immunization Patients Under 20 months Aged Out No longer eligible based on patient's age to complete this topic Care Teams [employer]ian [employer] Relationship Specialty Start Date End Date Ila Hernandez MD [address] [place] [address] PCP - General 11/28/22
== END 2025-01-18 11:16 | disposition home or self-care (01) ==
LOC: HO.HMCC 10:03
PROVIDERS: PCP Internal Medicine; Visit Provider Internal Medicine
DX: Z00.01 Encounter for general adult medical examination with abnormal findings (principal); F41.1 Generalized anxiety disorder; E66.9 Obesity, unspecified; Z68.32 Body mass index [BMI] 32.0-32.9, adult; E04.2 Nontoxic multinodular goiter; E28.2 Polycystic ovarian syndrome; R73.03 Prediabetes

== ENCOUNTER 2025-01-18 10:02 | Outpatient (REF) | payer OTHER, SELFPAY ==
[2025-01-18 13:30] LABS: MANUAL DIFF FLAG NO
[2025-01-18 13:55] LABS: Hemoglobin A1C 138.8031 umol/L; Total Hemoglobin (HGBA1C) 3576.3107 umol/L
[2025-01-18 14:00] LABS: Hematocrit 41.8 % (37.0-47.0); Hemoglobin 13.7 g/dl (12.0-16.0); Imm Gran Abs Auto 0.03 X10*3/uL (0.00-0.03); Imm Gran Pct Auto 0.4 % (0.0-0.4); Lymphocytes Absolute Auto 3.5 X10*3/uL (1.2-4.9); Mean Corpuscular HGB Conc 32.8 g/dl (31.0-35.0); Mean Corpuscular Hemoglobin 29.1 pg (27.0-33.0); Mean Corpuscular Volume 88.7 fL (80.0-98.0); NRBC Abs Auto 0.000 X10*3/uL (0.0-0.012); NRBC Pct Auto 0.0 /100WBC (0.0-0.2); Platelet Count 381 X10*3/uL (160-400); Red Blood Count 4.71 X10*6/uL (4.20-5.50); White Blood Count 7.7 X10*3/uL (4.8-10.8)
[2025-01-18 14:18] LABS: Alanine Aminotransferase 25 U/L (0-31); Anion Gap 11 (12-20); Aspartate Amino Transferase 23 U/L (5-31); Blood Urea Nitrogen 11 mg/dL (9-16); Calcium 8.9 mg/dL (8.4-10.2); Carbon Dioxide 27 mmol/L (22-29); Chloride 106 mmol/L (96-108); Cholesterol 170 mg/dL (<200); Estimated Glomerular Filt Rate > 60; HDL Cholesterol 42 mg/dL (>40); Potassium 4.0 mmol/L (3.3-5.1); Sodium 140 mmol/L (135-145); Triglycerides 155 mg/dL (<150)
== END 2025-01-18 10:03 | disposition home or self-care (01) ==
LOC: HO.HMGCLDS 10:02
PROVIDERS: PCP Internal Medicine; Visit Provider Internal Medicine
DX: Z00.01 Encounter for general adult medical examination with abnormal findings (principal); F41.1 Generalized anxiety disorder; E04.2 Nontoxic multinodular goiter; E28.2 Polycystic ovarian syndrome; E66.9 Obesity, unspecified; Z68.32 Body mass index [BMI] 32.0-32.9, adult; R73.03 Prediabetes; Z86.2 Personal history of diseases of the blood and blood-forming organs and certain disorders involving the immune mechanism; Z13.31 Encounter for screening for depression; Z13.39 Encounter for screening examination for other mental health and behavioral disorders
CPT/HCPCS: 36415; 80048; 80061; 83036; 84450; 84460; 85025; 96127; 99395